=== PATIENT | female | born 1950 | race Caucasian/White ===

== ENCOUNTER 2025-02-05 08:49 | Outpatient (AMB) | payer MEDICARE, SELFPAY ==
--- NOTE | 2025-02-05 08:52 | MHC.OFFVIS ---
Vital Signs 02/05/25 08:57 Height 5 ft 1 in Weight 125 lb BMI 23.6 BP 142/68 H Blood Pressure Location Rt brachial Position Sitting Respiration 16 Pulse 88 Pulse Oximetry (%) 98 Intake Visit Reasons: Dizziness Allergies No Known Allergies Allergy (Verified 02/05/25 08:57) HPI Comments Details: Justine is a 74-year-old female patient with a past medical history of hypertension and hypothyroid who is referred to the clinic for reports of dizziness. According to referral notes from primary care, initially her dizziness was presumed to be related to her amlodipine however after vacationing from the amlodipine she did still have some lightheadedness. She had been referred to vestibular rehab and Neurology though there was mentioned that she never went to Neurology because CT of the head was nonacute. She is no longer feeling ?spinning sensations? but does have lightheadedness which is relatively constant. She does have a family history notable for Parkinson's disease and ?cardiac problems?. Today Justine tells me that in July of 2024 she began having some dizzy spells. They stopped for about 3 months and returned in November. Dizzy spells can occur days in a row and then may occcur once per week or even less. The episodes do no occur more than once per day and her dizziness lasts less than one minute in total. The last time this occurred was 02/02/2025. Between these episodes she feels slightly light headed but this is mild and not impacting her balance. She is not able to determine a trigger for these episodes and can occur sitting or standing or even laying. She has not noticed a correlation with alexander head movements. There are no other symptoms that come along with these episodes. Social: Occupation: Worked as a bankruptcy law specialist for many years Home life:Lives home alone. . Lives close by to 3 children who are involved. Alcohol: No Tobacco: No Substance use: No PD screening: Constipation: No Sense of smell:No loss or change in sense of smell Sleep: Goes to bed at 10am and awakes at 3am with difficulty falling back asleep. No acting out of her dreams. Depression: No Anxiety: No Tremor: No Stiffness:No abnormal stiffness Change in voice: Does note that her voice has been more raspy lately Change in gait:Fracture to her right ankle has contributed to some gait disturbance but other than this no Family history: Mother with history of PD Seizure screening: Last brain imaging:CT brain within the last year at [facility] History of brain infection:No History of significant illness or hospitalization:No History of stroke of brain bleed:No History of pre-term :No History of learning disability:No History of developmental delay:No Family history of seizure:No PFSH Medical History (Updated 02/05/25 @ 09:35 by Shira Cao CNP) Vitamin D deficiency COPD (chronic obstructive pulmonary disease) Hypertension History of lung cancer Surgical History (Updated 02/03/25 @ 08:49 by Jael Abrams CMA) Hx of tonsillectomy History of cholecystectomy History of ankle surgery Family History (Updated 02/03/25 @ 09:01 by Jael Abrams CMA) Mother Parkinson disease Father Cataracts, bilateral Hypotension Review of Systems Const All systems reviewed & are unremarkable except as noted in HPI and below Physical Exam Exam Exam: Negative [place]-Hallpike maneuver Vital Signs: Last Vital Signs Pulse 88 02/05/25 08:57 Resp 16 02/05/25 08:57 BP 142/68 H 02/05/25 08:57 Pulse Ox 98 02/05/25 08:57 BMI result Body Mass Index 23.6 Const General: cooperative, healthy appearing, comfortable and no acute distress Nutritional Appearance: well nourished Orientation/consciousness: patient oriented x3 Limitations: no limitations HEENT Head: Yes normal to inspection and Yes normocephalic Eyes General: appearance normal, both eyes and all related structures Visual Schwartz: normal visual schwartz by confrontation Alignment and Position: alignment normal Periorbital: periorbital findings normal Eyelids: Yes eyelids normal Conjunctivae: conjunctivae normal Sclerae: sclerae normal Neck Neck: Yes normal visual inspection and Yes full ROM General: Yes no CVA tenderness Back/Spine/Pelvis Back: no CVA tenderness Cervical Spine: normal cervical lordosis Thoracic/Lumbar Spine: thoracic and lumbar spine normal to inspection Neuro General: patient oriented x3, tone normal and deep tendon reflexes 2+ bilaterally Cranial nerves: Yes CN's II-XII intact bilaterally and Yes Facial sensation intact/muscles of mastication intact Cognition (Neuro): normal cognition Gait exam (Neuro): Normal gait present Motor exam (neuro): 5/5 motor strength present throughout and no tremor noted Sensory Exam: double simultaneous stimulation for sensation normal Romberg Test: Negative Pupils: Normal pupillary reactivity/response: bilateral Psych Appearance: grossly normal Mental Status: mental status grossly normal Speech and movement: Normal speech and movement present and Clear speech present Affect: normal affect Attitude: cooperative Thought process: Normal thought process present Thought content: Normal thought content present Insight: Good insight present (Psych) Judgement: Good judgement present (Psych) Assessment & Plan Assessment & Plan (1) Dizziness: Code(s): R42 - Dizziness and giddiness Category: Medical Plan: . (2) Vertigo: Code(s): R42 - Dizziness and giddiness Category: Medical Plan: . Sondra Fletcher is a 74-year-old female patient with a past medical history of hypertension and hypothyroid who is referred to the clinic for reports of dizziness/vertigo episodes. These episodes are sporadic lasting only a few seconds at a time. She does have full recovery in between these episodes. Based on history, I have no major concerns for PD or strong indication that seizure is likely. I did however perform a [place]-Hallpike maneuver during our exam today which did not induce her symptoms. I think it is still more than likely to be a benign vertigo though can not completely exclude seizure or vascular etiology. I will send her for a trial of vestibular physical therapy but also order an EEG to rule out potential for seizure activity and an MRA to exclude any vascular abnormalities within the head or neck. -Trial of vestibular PT -EEG -MRA head and neck -Follow-up in 6 weeks or sooner if needed Coding Level of Care Code New Pt Level 4 (02473) Diagnoses Dizziness R42 Vertigo R42
[2025-02-05 08:57] VITALS: BP 142/68; PULSE 88; RESP 16; O2SAT 98; BMI 23.6
--- OUTSIDE RECORDS SUMMARY | 2025-02-05 10:08 | XMS_ITS | Encounter Summary ---
Author Organization [facility] Address [address] [place] [address] Care Team Providers Care Golf Technician Name Role Phone Angelic Julio PA-C Unavailable [phone] Rachel Stringer PA-C Primary Care Provider + Enrique Parsons PA-C Unavailable [phone] Mac Fowler MD Unavailable Encounter Details Date Type Department Care Team Description 09/08/2023 Orders Only Vascular Surgery - [address] [place] [phone] Prachi Rudd MD [address] [place] [phone] PAD (peripheral artery disease) (HCC); Leg pain, bilateral Social History Tobacco Use Types Packs/Day Years Used Date Smoking Tobacco: Former Cigarettes 1 30 0 06/05/1967 - 06/05/2009 Smokeless Tobacco: Never Chew Alcohol Use Standard Drinks/Week Comments Yes 0 (1 standard drink = 0.6 oz pur e alcohol) occasional wine Physical Activity Answer Date Recorded On average, how many days pe r week do you engage in moderate to strenuous exercise (like walking fast, running, jogging, dancing, swimming, biking, or other activities that cause a light or heavy sweat)? 7 days 10/17/2019 On average, how many minutes do you engage in exercise at this level? Not asked Sex Assigned at Date Recorded Not on file Job Start Date Occupation Industry Not on file Not on file Not on file documented as of this encounter Plan of Treatment Not on file documented as of this encounter Procedures Procedure Name Priority Date/Time Associated Diagnosis Comments LOWER EXTREMITY ARTERY STUDY, COMPL WITH ZAINAB Routine 09/07/2023 PAD (peripheral artery disease) ([facility]) Leg pain, bilateral documented in this encounter Results * LOWER EXTREMITY ARTERY STUDY, COMPL WITH ZAINAB (09/07/2023) Prachi Rudd MD VASCULAR ULTRASO UND documented in this encounter Visit Diagnoses Diagnosis PAD (peripheral artery disease) ([facility]) Unspecified disorders of arteries and arterioles Leg pain, bilateral Pain in limb documented in this encounter Care Teams Golf Technician Relationship Specialty Start Date End Date Rachel Stringer PA-C [address] [phone] PCP - General Internal Medicine 04/11/23 Angelic Julio PA-C [address] [phone] Thoracic Surgery 02/28/23 Enrique Parsons PA-C [address] [phone] Specialist Thoracic Surgery 08/30/23 Mac Fowler MD [address] [phone] Lung Cancer Lace Burn Out Tender 03/13/24 documented as of this encounter
--- OUTSIDE RECORDS SUMMARY | 2025-02-05 10:08 | XMS_ITS | Encounter Summary ---
Author Organization [facility] Address [address] [place] [address] Care Team Providers Care Smeller Name Role Phone Bob Ledbetter MD Primary Care Provider [phone] Rachel Stringer-C Primary Care Provider + Bob Ledbetter MD Primary Care Provider [phone] Rachel StringerC Primary Care Provider + Bob Ledbetter MD Primary Care Provider [phone] Angelic Julio PA-C Unavailable [phone] Rachel Stringer-C Primary Care Provider + Enrique Parsons PA-C Unavailable [phone] Mac Fowler MD Unavailable Encounter Details Date Type Department Care Team Description 06/08/2018 Release of Information Medical Records [address] [place] [id number] Abstract, Provider Social History Tobacco Use Types Packs/Day Years Used Date Smoking Tobacco: Former Cigarettes 1 0 06/05/1967 - 06/05/2009 Smokeless Tobacco: Never Alcohol Use Standard Drinks/Week Comments Yes 0 [...] on file documented as of this encounter Visit Diagnoses Not on filedocumented in this encounter Care Teams Smeller Relationship Specialty Start Date End Date Bob Ledbetter MD PCP - General Internal Medicine 04/04/18 09/08/19 Rachel Stringer PA-C [address] [place] [address] PCP - General Internal Medicine 09/09/19 09/28/20 Bob Ledbetter MD PCP - General Internal Medicine 09/29/20 11/26/20 Rachel Stringer PA-C [address] [place] [address] PCP - General Internal Medicine 11/27/20 07/12/22 Bob Ledbetter MD PCP - General Internal Medicine 07/13/22 04/10/23 Rachel Stringer PA-C [address] [place] [address] PCP - General Internal Medicine 04/11/23 Angelic Julio PA-C [address] [phone] Thoracic Surgery 02/28/23 Enrique Parsons PA-C [address] [phone] Specialist Thoracic Surgery 08/30/23 Mac Fowler MD [address] [phone] Lung Cancer Pit Boss 03/13/24 documented as of this encounter
--- OUTSIDE RECORDS SUMMARY | 2025-02-05 10:08 | XMS_ITS | Encounter Summary ---
Author Organization [facility] Address [address] [place] [address] Care Team Providers Care Public Records Officer Name Role Phone Angelic Julio PA-C Unavailable [phone] Rachel Stringer PA-C Primary Care Provider + Enrique Parsons PA-C Unavailable [phone] Mac Fowler MD Unavailable Encounter Details Date Type Department Care Team Description 03/04/2024 Orders Only [facility] Thoracic Surgery [facility] [address] [facility] [address] [place] [phone] Enrique Parsons PA-C 299 [facility] [address] [place] [phone] History of lung cancer Social History Tobacco Use Types Packs/Day Years [...] Procedure Name Priority Date/Time Associated Diagnosis Comments CAT SCAN OF CHEST NO CONTRAST Routine 03/01/2024 History of lung cancer documented in this encounter Results * CAT SCAN OF CHEST NO CONTRAST (03/01/2024) 03/01/2024 Enrique Parsons PA-C CT SCANS [facility] RADIOLOG[facility] documented in this encounter Visit Diagnoses Diagnosis History of lung cancer Personal history of malignant neoplasm of bronchus and lung documented in this encounter Care Teams Public Records Officer Relationship Specialty Start Date End Date Rachel Stringer PA-C [address] [phone] PCP - General Internal Medicine 04/11/23 Angelic Julio PA-C [address] [phone] Thoracic Surgery 02/28/23 Enrique Parsons PA-C [address] [phone] Specialist Thoracic Surgery 08/30/23 Mac Fowler MD [address] [phone] Lung Cancer Fbi Sharpshooter 03/13/24 documented as of this encounter
--- OUTSIDE RECORDS SUMMARY | 2025-02-05 10:08 | XMS_ITS | Encounter Summary ---
Author Organization [facility] Address [address] [place] [address] Care Team Providers Care Television Production Technician Name Role Phone Bob Ledbetter MD Primary Care Provider [phone] Angelic JulioC Unavailable [phone] Rachel Stringer PA-C Primary Care Provider + Enrique Parsons PA-C Unavailable [phone] Mac Rich MD Unavailable Reason for Visit * Reason Onset Date Comments Referral Authorization 12/27/2022 Encounter Details Date Type Department Care Team Description 12/27/2022 Telephone Internal Medicine - [address], [address] [place] [address] Bob Ledbetter MD [address] [place], [place] [id number] Referral Authorization Social History Tobacco Use Types Packs/Day Years [...] file Not on file Not on file COVID-19 Exposure Response Date Recorded In the last 10 days, have yo u been in contact with someone who was confirmed or suspected to have Coronavirus/COVID-19? No / Unsure 12/27/2022 11:09 AM EDT documented as of this encounter Miscellaneous Notes * Telephone Encounter - Anny Chan - 12/27/2022 8:44 AM EDT What insurance does the patient have today? [facility] Effective 02/12/09: BCBS will not retro referral requests over 90 days. If request is for this please instruct patient to call the 800# on their insurance card to appeal. Do not submit a request. Referrals cannot be processed if the insurance is not accurate. If the insurance listed above in red is NO BILLING INFORMATION FOUND FOR THIS ENCOUTNER The patients correct insurance must be obtained and registered in [facility] or their referral can not be processed. Is this a retro request? NO. If yes for what date of service do you need the retro referral? N/A Who is calling to request this referral? na If the caller is not the patient, what is their name? N/A Ask the patient WHO referred them to this specialty: Patient self referred FIRST and LAST NAME of SPECIALIST PATIENT is seeing: dr rich What specialty is this? Thoracic surgeon DIAGNOSIS Patient is being seen for (Not a body part or a procedure): lung nocule Have you seen this SPECIALIST for this PROBLEM/DX before?NO If YES, when:no Have you checked REVIEW or the APPT DESK to see if this referral has already been done or has visits left? NO Is this visit:Initial Visit Address of Specialist:[address] [place] [address] [address] [place], [place] Phone # of Specialist:[phone] Fax #: (if applicable):[phone] Does patient have an appointment scheduled?: YES Date of appointment- (including a retro-request): December 27, 2022 Is this appointment related to: Not MVA, WC or Surgery related documented in this encounter Plan of Treatment Not on file documented as of this encounter Visit Diagnoses Not on filedocumented in this encounter Care Teams Television Production Technician Relationship Specialty Start Date End Date Bob Ledbetter MD PCP - General Internal Medicine 07/13/22 04/10/23 Rachel Stringer PA-C [address] [phone] PCP - General Internal Medicine 04/11/23 Angelic Julio PA-C [address] [phone] Thoracic Surgery 02/28/23 Enrique Parsons PA-C [address] [phone] Specialist Thoracic Surgery 08/30/23 Mac Rich MD [address] [phone] Lung Cancer Forensic Economist 03/13/24 documented as of this encounter
--- OUTSIDE RECORDS SUMMARY | 2025-02-05 10:08 | XMS_ITS | Encounter Summary ---
Author Organization [facility] Address [address] [place] [address] Care Team Providers Care Sales And Marketing Engineer Name Role Phone Rachel Stringer PA-C Primary Care Provider + Bob Ledbetter MD Primary Care Provider [phone] Angelic Julio PA-C Unavailable [phone] Rachel Stringer PA-C Primary Care Provider + Enrique Parsons PA-C Unavailable [phone] Mac Fowler MD Unavailable Encounter Details Date Type Department Care Team Description 11/12/2021 Pt. Non Urgent Medical Question Internal Medicine - [address], [address] [place] [address] Rachel Stringer PA-C [address] [place] [phone] Social History Tobacco Use Types Packs/Day Years [...] on file documented as of this encounter Miscellaneous Notes * Telephone Encounter - Leslie Garcia M.A. - 11/16/2021 10:16 AM EDTFrom: Justine Alvarado To: Tate Stringer Sent: 11/12/2021 12:00 PM EDT Subject: Urine test I'm assuming everything was ok because I haven't heard from anyone. Have a great weekend, Justine documented in this encounter Plan of Treatment Not on file documented as of this encounter Visit Diagnoses Not on filedocumented in this encounter Care Teams Sales And Marketing Engineer Relationship Specialty Start Date End Date Rachel Stringer PA-C PCP - General Internal Medicine 11/27/20 07/12/22 Bob Ledbetter MD PCP - General Internal Medicine 07/13/22 04/10/23 Rachel Stringer PA-C PCP - General Internal Medicine 04/11/23 Angelic Julio PA-C [address] [phone] Thoracic Surgery 02/28/23 Enrique Parsons PA-C [address] [phone] Specialist Thoracic Surgery 08/30/23 Mac Fowler MD [address] [phone] Lung Cancer Barrel Roller 03/13/24 documented as of this encounter
--- OUTSIDE RECORDS SUMMARY | 2025-02-05 10:08 | XMS_ITS | Encounter Summary ---
Author Organization [facility] Address [address] [place] [address] Care Team Providers Care Urban Forester Name Role Phone Angelic Julio PA-C Unavailable [phone] Rachel Stringer PA-C Primary Care Provider + Enrique Parsons PA-C Unavailable [phone] Mac Fowler MD Unavailable Encounter Details Date Type Department Care Team Description 11/29/2023 Orders Only Gastroenterology - [place] [address] [facility] [address] [place] [phone] Justine Watts APRN [address] [facility] [place] [address] Alternating constipation and diarrhea Social History Tobacco Use Types Packs/Day Years [...] Procedure Name Priority Date/Time Associated Diagnosis Comments CHG RADIOLOGIC EXAM ABDOMEN 1 VIEW Routine 11/28/2023 Alternating constipation and diarrhea documented in this encounter Results * RADIOLOGIC EXAM ABDOMEN 1 VIEW (11/28/2023) 11/28/2023 Justine Watts [facility] documented in this encounter Visit Diagnoses Diagnosis Alternating constipation and diarrhea Other symptoms involving digestive system documented in this encounter Care Teams Urban Forester Relationship Specialty Start Date End Date Rachel Stringer PA-C [address] [phone] PCP - General Internal Medicine 04/11/23 Angelic Julio PA-C [address] [phone] Thoracic Surgery 02/28/23 Enrique Parsons PA-C [address] [phone] Specialist Thoracic Surgery 08/30/23 Mac Fowler MD [address] [phone] Lung Cancer Station Chief 03/13/24 documented as of this encounter
--- OUTSIDE RECORDS SUMMARY | 2025-02-05 10:08 | XMS_ITS | Encounter Summary ---
Author Organization [facility] Address [address] [place] [address] Care Team Providers Care Sociocultural Anthropology Professor Name Role Phone Bob Ledbetter MD Primary Care Provider [phone] Rachel Stringer-C Primary Care Provider + Bob Ledbetter MD Primary Care Provider [phone] Rachel StringerC Primary Care Provider + Bob Ledbetter MD Primary Care Provider [phone] Angelic Julio PA-C Unavailable [phone] Rachel Stringer-C Primary Care Provider + Enrique Parsons-C Unavailable [phone] Mac Fowler MD Unavailable Encounter Details Date Type Department Care Team Description 06/11/2018 Orders Only Medical Records [address] [place] [address] Abstract, Provider Social History Tobacco Use Types [...] Procedure Name Priority Date/Time Associated Diagnosis Comments OUTSIDE COLONOSCOPY Routine 03/29/2018 documented in this encounter Results * OUTSIDE COLONOSCOPY (03/29/2018) Provider Abstract RADIOLOGY documented in this encounter Visit Diagnoses Not on filedocumented in this encounter Care Teams Sociocultural Anthropology Professor Relationship Specialty Start Date End Date Bob Ledbetter MD PCP - General Internal Medicine 04/04/18 09/08/19 Rachel Stringer PA-C [address] [place] [phone] PCP - General Internal Medicine 09/09/19 09/28/20 Bob Ledbetter MD PCP - General Internal Medicine 09/29/20 11/26/20 Rachel Stringer PA-C [address] [place] [phone] PCP - General Internal Medicine 11/27/20 07/12/22 Bob Ledbetter MD PCP - General Internal Medicine 07/13/22 04/10/23 Rachel Stringer PA-C [address] [place] [phone] PCP - General Internal Medicine 04/11/23 Angelic Julio PA-C [address] [phone] Thoracic Surgery 02/28/23 Enrique Parsons PA-C [address] [phone] Specialist Thoracic Surgery 08/30/23 Mac Fowler MD [address] [place] [phone] Lung Cancer Wood Carving Lathe Operator 03/13/24 documented as of this encounter
--- OUTSIDE RECORDS SUMMARY | 2025-02-05 10:08 | XMS_ITS | Encounter Summary ---
Author Organization [facility] Address [address] [place] [address] Care Team Providers Care Dial Mounter Name Role Phone Rachel Stringer PA-C Primary Care Provider + Bob Ledbetter MD Primary Care Provider [phone] Angelic Julio PA-C Unavailable [phone] Rachel Stringer PA-C Primary Care Provider + Enrique Parsons PA-C Unavailable [phone] Mac Fowler MD Unavailable Encounter Details Date Type Department Care Team Description 06/02/2022 [facility] Medical Records [address] [place] [address] Social History Tobacco Use Types Packs/Day Years [...] suspected to have Coronavirus/COVID-19? No / Unsure 05/04/2022 9:21 AM EST documented as of this encounter Plan of Treatment Not on file documented as of this encounter Visit Diagnoses Not on filedocumented in this encounter Care Teams Dial Mounter Relationship Specialty Start Date End Date Rachel Stringer PA-C PCP - General Internal Medicine 11/27/20 07/12/22 Bob Ledbetter MD PCP - General Internal Medicine 07/13/22 04/10/23 Rachel Stringer PA-C PCP - General Internal Medicine 04/11/23 Angelic Julio PA-C [address] [phone] Thoracic Surgery 02/28/23 Enrique Parsons PA-C [address] [phone] Specialist Thoracic Surgery 08/30/23 Mac Fowler MD [address] [phone] Lung Cancer Counterintelligence Analyst 03/13/24 documented as of this encounter
--- OUTSIDE RECORDS SUMMARY | 2025-02-05 10:08 | XMS_ITS | Clinical Summary ---
Author Organization [facility] Address [address] [place] [address] Care Team Providers Care Chain Offbearer Name Role Phone Angelic Julio PA-C Unavailable [phone] Rachel Stringer PA-C Primary Care Provider + Enrique Parsons PA-C Unavailable [phone] Mac Fowler MD Unavailable Allergies Active Allergy Reactions Severity Noted Date Comments No Known Drug Allergies 2009 Medications Medication Sig Dispensed Refills Start Date End Date Status levothyroxine (SYNTHROID, LEVOTHROID) 75 MCG tablet Take 1 Tab by mouth daily. 0 01/04/2017 Active Cholecalciferol (VITAMIN D3) 2000 UNITS CapIndications:Vitamin D deficiency Take 1 Cap by mouth daily. 90 Cap 3 06/18/2018 Active fluticasone (FLONASE) 50 MCG/ACT nasal spray 2 Sprays by Nasal route daily. 3 Bottle 1 08/20/2020 Active Magnesium 250 MG TabIndications:Constip ation, unspecified constipation type,Insomnia, unspecified type Take 1 Tablet by mouth at bedtime. 90 Tablet 1 09/25/2023 Active cetirizine (ZYRTEC) 10 MG tabletIndications:Iban rgic rhinitis, unspecified seasonality, unspecified trigger TAKE 1 TABLET BY MOUTH EVERY DAY 90 Tablet 3 12/07/2023 Active amlodipine (NORVASC) 5 MG tablet Take 1 Tablet by mouth daily. 90 Tablet 2 03/14/2024 Active Active Problems Problem Noted Date Vitamin B12 deficiency 03/14/2024 History of lung cancer 02/24/2023 Last Assessment & Plan: Ms. Morgan is a 73-year-old female, former smoker on February 14, 2023 had a da Jerry right middle lobectomy and pleural biopsy for stage Ia adenocarcinoma. Her most recent chest CT surveillance scan was performed on 03/01/2024 which according to radiologist read shows a 3 mm left lower lobe pulmonary nodule. Per NCCN guidelines we will continue with 6-month chest CT surveillance for the first 2 years following her surgical date and then increased to 12-month intervals thereafter for total surveillance of 5 years. Her next chest CT scan will be due in August 2024 and have a visit at the thoracic surgery department thereafter to discuss results. History of COVID-19 04/11/2020 Overview: had 03/2020 and 04/2021 Osteopenia 12/31/2019 Overview: femoral neck and hip per BMD History of smoking 30 or more pack years 01/11/2019 Allergic rhinitis 06/05/2018 Hypothyroidism 01/08/2018 Overview: Comments: Endo Dr. Meadows Vitamin D deficiency COPD (chronic obstructive pulmonary dise ase) Pulmonary nodule 1 cm or greater in diam eter Overview: CT chest 03/08/19, 10/19/19- stable repeat 1 year - Dr. Fowler Last Assessment & Plan: 72-year-old woman former smoker who smoked a pack a day starting at age 16 up until 2009 with an enlarging solid component of a mixed nodule in the right middle lobe which is a clinical stage I lung cancer until proven otherwise. I had a discussion with her about the findings on her serial CAT scans and her PET scan including how PET scans work and how to use them. We also discussed pulmonary nodules in general and how their size, shape, and policy change clerks supervisor time affect are level of suspicion for malignancy. This is a highly suspicious nodule for probably a lipidic type lung cancer which I explained to her. Finally, we discussed the diagnosis, staging, and treatment of lung cancer which she seemed understand. Options discussed with her were continued observation versus needle biopsy versus surgical resection which would take a lobectomy. After our discussion she decided on a lobectomy. She has pulmonary function test coming up this week and I will have her see her primary care with the plan for a da Jerry right middle lobectomy in early February when she comes back from [place]. She is going to [place] from January 29 until February 12. Prior to that we will get any testing we need to get done and have her see her primary care for a preoperative risk assessment. All questions were answered. Immunizations Name Administration Dates Next Due COVID-19 (Pfizer) Pt Reported 06/04/2021, 021,07/26/2020 Influenza vaccine high dose age 65 and over 02/13/2024,02/03/2022,02/12/2021,05/15 Pneumoccoccal(Adult) Polysac charide PPSV23 08/07/2018 Pneumococcal Conjugate PCV-13 06/05/2018 RSV 08/15/2023 Family History Medical History Relation Name Comments Cataract Father Hypertension Father Parkinson's Disease Mother Relation Name Status Comments Father (Age 93) covid Mother (Age 78) Social History Tobacco Use Types Packs/Day Years Used Date Smoking Tobacco: Former Cigarettes 1 30 0 06/05/1967 - 06/05/2009 Smokeless Tobacco: Never Chew Tobacco Cessation:Counseling Given: Not Answered Alcohol Use Standard Drinks/Week Comments Yes 0 [...] file Not on file Not on file Last Filed Vital Signs Vital Sign Reading Time Taken Comments Blood Pressure 139/60 03/14/2024 9:49 AM EDT Pulse 87 03/14/2024 9:49 AM EDT Temperature 36.3 C (97.3 F) 03/14/2024 9:49 AM EDT Respiratory Rate 14 03/13/2024 10:13 AM EDT Oxygen Saturation 96% 03/14/2024 9:49 AM EDT Inhaled Oxygen Concentration - - Weight 56.9 kg (125 lb 6.4 oz) 03/14/2024 9:49 A M EDT Height 154.9 cm (5' 1 ) 03/14/2024 9:49 AM EDT Body Mass Index 23.69 03/14/2024 9:49 AM EDT Plan of Treatment Health Maintenance Due Date Last Done Comments HEPATITIS C SCREENING 1966 DTAP/TDAP/TD (1 - Tdap) 1967 SHINGLES VACCINE (1 of 2) 1998 MAMMOGRAM 01/14/2024 01/13/2023, 12/14, 07/30/2020 BONE DENSITY SCREENING 11/30/2024 , 12/31/2019, 12/31/2019 (External Completion) Covid-19 Vaccine (2022-2 4 season) 2025 06/04/2021, 08/16/2020, 07/26/2020 INFLUENZA (#1) 2025 02/13/2024, 01/14, 02/12/2021, Additional history exists Lung Cancer Screening (Low D ose CT) 03/01/2025 03/01/2024, 08/22/2023, 08/31/2022, Additional history exists CHOLESTEROL SCREENING 07/18/2028 07/19/2023 , 08/04/2022, 05/25/2020, Additional history exists PNEUMOCOCCAL VACCINE Completed 08/07/2018, 06/05/19 19 Care Teams Chain Offbearer Relationship Specialty Start Date End Date Rachel Stringer PA-C [address] [place] [phone] PCP - General Internal Medicine 04/11/23 Angelic Julio PA-C [address] [place] [phone] Thoracic Surgery 02/28/23 Enrique Parsons PA-C [address] [place] [phone] Specialist Thoracic Surgery 08/30/23 Mac Fowler MD [address] [phone] Lung Cancer Pattern Hand 03/13/24
--- OUTSIDE RECORDS SUMMARY | 2025-02-05 10:08 | XMS_ITS | Encounter Summary ---
Author Organization [facility] Address [address] [place] [address] Care Team Providers Care Preschool Assistant Teacher Name Role Phone Bob Ledbetter MD Primary Care Provider [phone] Angelic Julio PA-C Unavailable [phone] Rachel Stringer PA-C Primary Care Provider + Enrique Parsons PA-C Unavailable [phone] Mac Fowler MD Unavailable Encounter Details Date Type Department Care Team Description 08/03/2022 Telephone [facility] Lung Screening Program [place] [address] [facility] [address] [place] [phone] Mac Fowler MD 299 [facility] [address] [place] [id number] Social History Tobacco Use Types Packs/Day Years [...] Recorded In the last 10 days, have simone u been in contact with someone who was confirmed or suspected to have Coronavirus/COVID-19? No / Unsure 08/04/2022 11:08 AM EDT documented as of this encounter Miscellaneous Notes * Telephone Encounter - Nelida Spear - 08/03/2022 3:22 PM EDT I called patient to confirm her annual Chest CT Scan from the Lung Cancer Program that was schedulefor Monday at 10:30 at [facility]. Patient unable to keep her appointment due to having broken her ankle and needed to reschedule. I Called central Booking and scheduled patient with alfredo New date Wednesday August 31, 2022 st 11:30. New letter will be mail out. documented in this encounter Plan of Treatment Not on file documented as of this encounter Visit Diagnoses Not on filedocumented in this encounter Care Teams Preschool Assistant Teacher Relationship Specialty Start Date End Date Bob Ledbetter MD PCP - General Internal Medicine 07/13/22 04/10/23 Rachel Stringer PA-C [address] [phone] PCP - General Internal Medicine 04/11/23 Angelic Julio PA-C [address] [phone] Thoracic Surgery 02/28/23 Enrique Parsons PA-C [address] [phone] Specialist Thoracic Surgery 08/30/23 Mac Fowler MD [address] [phone] Lung Cancer Cupola Repairer 03/13/24 documented as of this encounter
--- OUTSIDE RECORDS SUMMARY | 2025-02-05 10:08 | XMS_ITS | Encounter Summary ---
Author Organization [facility] Address [address] [place] [address] Care Team Providers Care Pin Sorter And Bagger Name Role Phone Rachel Stringer PA-C Primary Care Provider + Bob Ledbetter MD Primary Care Provider [phone] Angelic Julio PA-C Unavailable [phone] Rachel Stringer PA-C Primary Care Provider + Enrique Parsons PA-C Unavailable [phone] Mac Fowler MD Unavailable Encounter Details Date Type Department Care Team Description 03/30/2022 Pt. Non Urgent Medical Question Internal Medicine - [address], [address] [place] [address] Rachel Stringer PA-C [address] [place] [phone] Social History Tobacco Use Types Packs/Day [...] suspected to have Coronavirus/COVID-19? No / Unsure 03/29/2022 1:13 PM EST documented as of this encounter Plan of Treatment Not on file documented as of this encounter Visit Diagnoses Not on filedocumented in this encounter Care Teams Pin Sorter And Bagger Relationship Specialty Start Date End Date Rachel Stringer PA-C PCP - General Internal Medicine 11/27/20 07/12/22 Bob Ledbetter MD PCP - General Internal Medicine 07/13/22 04/10/23 Rachel Stringer PA-C PCP - General Internal Medicine 04/11/23 Angelic Julio PA-C [address] [phone] Thoracic Surgery 02/28/23 Enrique Parsons PA-C [address] [phone] Specialist Thoracic Surgery 08/30/23 Mac Fowler MD [address] [phone] Lung Cancer Stabilizer Operator 03/13/24 documented as of this encounter
--- OUTSIDE RECORDS SUMMARY | 2025-02-05 10:08 | XMS_ITS | Encounter Summary ---
Author Organization [facility] Address [address] [place] [address] Care Team Providers Care District Attorney Name Role Phone Rachel Stringer PA-C Primary Care Provider + Bob Ledbetter MD Primary Care Provider [phone] Angelic Julio PA-C Unavailable [phone] Rachel Stringer PA-C Primary Care Provider + Enrique Parsons PA-C Unavailable [phone] Mac Fowler MD Unavailable Encounter Details Date Type Department Care Team Description 02/04/2022 Pt. Non Urgent Medical Question Internal Medicine - [address], [address] [place] [address] Rachel Stringer PA-C [address] [place] [phone] Allergic rhinitis, unspecified seasonality, unspecified trigger Social History Tobacco Use Types Packs/Day Years [...] suspected to have Coronavirus/COVID-19? No / Unsure 02/03/2022 2:42 PM EDT documented as of this encounter Plan of Treatment Not on file documented as of this encounter Visit Diagnoses Diagnosis Allergic rhinitis, unspecified seasonality, unspecified trigger documented in this encounter Care Teams District Attorney Relationship Specialty Start Date End Date Rachel Stringer PA-C PCP - General Internal Medicine 11/27/20 07/12/22 Bob Ledbetter MD PCP - General Internal Medicine 07/13/22 04/10/23 Rachel Stringer PA-C PCP - General Internal Medicine 04/11/23 Angelic Julio PA-C [address] [phone] Thoracic Surgery 02/28/23 Enrique Parsons PA-C [address] [phone] Specialist Thoracic Surgery 08/30/23 Mac Fowler MD [address] [phone] Lung Cancer Credit Rating Inspector 03/13/24 documented as of this encounter
--- OUTSIDE RECORDS SUMMARY | 2025-02-05 10:08 | XMS_ITS | Encounter Summary ---
Author Organization [facility] Address [address] [place] [address] Care Team Providers Care Food And Nutrition Teacher Name Role Phone Bob Ledbetter MD Primary Care Provider [phone] Angelic Julio PA-C Unavailable [phone] Rachel StringerC Primary Care Provider + Enrique Parsons-C Unavailable [phone] Mac Fowler MD Unavailable Reason for Visit * Reason Onset Date Comments Call From Insurance Co 10/17/2022 Encounter Details Date Type Department Care Team Description 10/17/2022 Telephone Internal Medicine - [address], [address] [place] [address] Bob Ledbetter MD [address] [place], [place] [phone] Call From Insurance Co Social History Tobacco Use Types Packs/Day Years [...] suspected to have Coronavirus/COVID-19? No / Unsure 10/06/2022 10:12 AM EDT documented as of this encounter Miscellaneous Notes * Telephone Encounter - Tutu Carson - 10/18/2022 12:52 PM EDT Bone dexa order has been refaxed. * Telephone Encounter - Rachel Stringer PA-C - 10/18/2022 11:55 AM EDT There is already an order in her chart from 08/04/2022 under imaging * Telephone Encounter - Kristie Sheppard M.A. - 10/17/2022 11:49 AM EDT Kalyn from [facility] insurance requesting a Bony Density test for patient 11/29/22 * Telephone Encounter - Mattie Carbajal - 10/17/2022 11:43 AM EDT Kalyn from [facility] insurance requesting a Bony Density test for patient 11/29/22 documented in this encounter Plan of Treatment Not on file documented as of this encounter Visit Diagnoses Not on filedocumented in this encounter Care Teams Food And Nutrition Teacher Relationship Specialty Start Date End Date Bob Ledbetter MD PCP - General Internal Medicine 07/13/22 04/10/23 Rachel Stringer PA-C [address] [place] [phone] PCP - General Internal Medicine 04/11/23 Angelic Julio PA-C [address] [phone] Thoracic Surgery 02/28/23 Enrique Parsons PA-C [address] [phone] Specialist Thoracic Surgery 08/30/23 Mac Fowler MD [address] [phone] Lung Cancer Cooling Machine Operator 03/13/24 documented as of this encounter
--- OUTSIDE RECORDS SUMMARY | 2025-02-05 10:08 | XMS_ITS | Clinical Summary ---
Author Organization [facility] Address [address] [place] [address] Care Team Providers Care Mixer Machine Feeder Name Role Phone Jojo August Primary Care Provider Allergies No known active allergies Medications Medication Sig Dispensed Refills Start Date End Date Status levothyroxine (SYNTHROID, LEVOXYL) tablet 75 mcg Take 75 mcg by mouth every morning on an empty stomach. 0 Active ondansetron (ZOFRAN-ODT) 4 MG disintegrating tablet Take 1 tablet (4 mg total) by mouth every 8 (eight) hours as needed for nausea. 10 tablet 0 05/07/2018 Active Social History Tobacco Use Types Packs/Day Years Used Date Smoking Tobacco: Former Cigarettes Q uit: 03/07/2013 Smokeless Tobacco: Never Alcohol Use Standard Drinks/Week Comments No 0 (1 standard drink = 0.6 oz pur e alcohol) Sex and Gender Information Value Date Recorded Sex Assigned at Female 05/07/2018 9:52 AM EST Gender Identity Not on file Sexual Orientation Not on file Job Start Date Occupation Industry Not on file Not on file Not on file Last Filed Vital Signs Vital Sign Reading Time Taken Comments Blood Pressure 143/78 05/07/2018 9:40 AM EST Pulse 93 05/07/2018 9:40 AM EST Temperature 36.7 C (98 F) 05/07/2018 9:40 AM EST Respiratory Rate 18 05/07/2018 9:40 AM EST Oxygen Saturation 97% 05/07/2018 9:40 AM EST Inhaled Oxygen Concentration - - Weight 56.7 kg (125 lb) 05/07/2018 9:40 AM EST Height 154.9 cm (5' 1 ) 05/07/2018 9:40 AM EST Body Mass Index 23.62 05/07/2018 9:40 AM EST Plan of Treatment Health Maintenance Due Date Last Done Comments Hepatitis C Screening 1950 Depression Screening 1960 Preventative Health Evaluation 1966 DTap / Tdap / Td (1 - Tdap) 1967 Shingrix-Zoster Vaccine (1 o f 2) 1998 Fall Risk Assessment 2013 Osteoporosis Screening (DEXA Scan) 2013 RSV Adult > 60+ Yrs or (1 - 1-dose 75+ series) 2023 COVID-19 Vaccine (4 - 2024-2 6 season) 2025 06/04/2021, 08/16/2020, 07/26/2020 Influenza Vaccine (#1) 2025 2, 02/12/2021, 05/15/2018 Pneumococcal Vaccine Completed 08/07/2018, 06/05/2018 Hepatitis B Vaccines Aged Out No long er eligible based on patient's age to complete this topic RSV Ped < 20 months Aged Out No longe r eligible based on patient's age to complete this topic Care Teams Mixer Machine Feeder Relationship Specialty Start Date End Date Jojo August PA PCP - General Physician Sales Executive Insurance 05/07/18
--- OUTSIDE RECORDS SUMMARY | 2025-02-05 10:08 | XMS_ITS | Encounter Summary ---
Author Organization [facility] Address [address] [place] [address] Care Team Providers Care Women'S Swim Coach Name Role Phone Angelic Julio PA-C Unavailable [phone] Rachel Stringer PA-C Primary Care Provider + Enrique Parsons PA-C Unavailable [phone] Mac Fowler MD Unavailable Reason for Visit * Reason Onset Date Comments Provider Call Back 04/11/2023 Encounter Details Date Type Department Care Team Description 04/11/2023 Telephone Internal Medicine - [address], [address] [place] [address] Bob Ledbetter MD [address] [place], [place] [phone] Provider Call Back Social History Tobacco Use Types Packs/Day Years [...] suspected to have Coronavirus/COVID-19? No / Unsure 03/22/2023 9:16 AM EST documented as of this encounter Miscellaneous Notes * Telephone Encounter - Tutu Carson - 04/12/2023 9:51 AM EST Lvm for pt to contact our office regarding message below. * Telephone Encounter - Indira Solano - 04/11/2023 3:05 PM EST Patient needs a call back because she was send to [facility] for her ear flush on both earsbut she have to wait 6 months for an appt and both ears needs to be flush Please advice [phone] documented in this encounter Plan of Treatment Not on file documented as of this encounter Visit Diagnoses Not on filedocumented in this encounter Care Teams Women'S Swim Coach Relationship Specialty Start Date End Date Rachel Stringer PA-C [address] [phone] PCP - General Internal Medicine 04/11/23 Angelic Julio PA-C [address] [phone] Thoracic Surgery 02/28/23 Enrique Parsons PA-C [address] [phone] Specialist Thoracic Surgery 08/30/23 Mac Fowler MD [address] [phone] Lung Cancer Dust Puller 03/13/24 documented as of this encounter
--- OUTSIDE RECORDS SUMMARY | 2025-02-05 10:08 | XMS_ITS | Encounter Summary ---
Author Organization [facility] Address [address] [place] [address] Care Team Providers Care Absorption And Adsorption Engineer Name Role Phone Bob Ledbetter MD Primary Care Provider [phone] Angelic Julio PA-C Unavailable [phone] Rachel Stringer PA-C Primary Care Provider + Enrique Parsons PA-C Unavailable [phone] Mac Fowler MD Unavailable Encounter Details Date Type Department Care Team Description 01/06/2023 Orders Only [facility] Lung Screening Program [place] 299 [facility] [address] [place] [phone] Angelic Julio PA-C [address] [facility] [address] [place] [phone] Pulmonary nodules Social History Tobacco Use Types Packs/Day Years [...] suspected to have Coronavirus/COVID-19? No / Unsure 01/09/2023 3:17 PM EDT documented as of this encounter Plan of Treatment Not on file documented as of this encounter Procedures Procedure Name Priority Date/Time Associated Diagnosis Comments TUMOR IMAGING, (PET) W/ATTEN UATION CORREXN/ANATOMIC LOC CT; SKULL BASE TO MID-THIGH Routine 01/06/2023 Pulmonary nodules documented in this encounter Results * TUMOR IMAGING, (PET) W/ATTENUATION CORREXN/ANATOMIC LOC CT; SKULL BASE TO MID- THIGH (01/06/2023) 01/06/2023 Angelic Julio PA-C RADIOLOGY documented in this encounter Visit Diagnoses Diagnosis Pulmonary nodules Other nonspecific abnormal finding of lung field documented in this encounter Care Teams Absorption And Adsorption Engineer Relationship Specialty Start Date End Date Bob Ledbetter MD PCP - General Internal Medicine 07/13/22 04/10/23 aRchel Stringer PA-C [address] [phone] PCP - General Internal Medicine 04/11/23 Angelic Julio PA-C [address] [phone] Thoracic Surgery 02/28/23 Enrique Parsons PA-C [address] [phone] Specialist Thoracic Surgery 08/30/23 Mac Fowler MD [address] [phone] Lung Cancer Senior Staff Psychologist 03/13/24 documented as of this encounter
--- OUTSIDE RECORDS SUMMARY | 2025-02-05 10:08 | XMS_ITS | Encounter Summary ---
Author Organization [facility] Address [address] [place] [address] Care Team Providers Care Lapel Padder Blindstitch Name Role Phone oBb Ledbetter MD Primary Care Provider [phone] Angelic Julio PA-C Unavailable [phone] Rachel Stringer PA-C Primary Care Provider + Enrique Parsons PA-C Unavailable [phone] Mac Fowler MD Unavailable Encounter Details Date Type Department Care Team Description 11/12/2022 Orders Only Internal Medicine - [address], [address] [place] [address] Bob Ledbetter MD [address] [place], [place] [phone] Social History Tobacco Use Types Packs/Day Years [...] on filedocumented in this encounter Care Teams Lapel Padder Blindstitch Relationship Specialty Start Date End Date Bob Ledbetter MD PCP - General Internal Medicine 07/13/22 04/10/23 Rachel Stringer PA-C [address] [phone] PCP - General Internal Medicine 04/11/23 Angelic Julio PA-C [address] [phone] Thoracic Surgery 02/28/23 Enrique Parsons PA-C [address] [phone] Specialist Thoracic Surgery 08/30/23 Mac Fowler MD [address] [phone] Lung Cancer Director Content Marketing 03/13/24 documented as of this encounter
--- OUTSIDE RECORDS SUMMARY | 2025-02-05 10:08 | XMS_ITS | Encounter Summary ---
Author Organization [facility] Address [address] [place] [address] Care Team Providers Care Grounds Caretaker Name Role Phone Bob Ledbetter MD Primary Care Provider [phone] Angelic Julio PA-C Unavailable [phone] Rachel Stringer PA-C Primary Care Provider + Enrique Parsons PA-C Unavailable [phone] Mac Fowler MD Unavailable Reason for Visit * Reason Onset Date Comments refill request 09/16/2022 Encounter Details Date Type Department Care Team Description 09/16/2022 Refill Internal Medicine - [address], [address] [place] [address] Bob Ledbetter MD [address] [place], [place] [phone] refill request Social History Tobacco Use Types Packs/Day Years [...] encounter Miscellaneous Notes * Telephone Encounter - Nick Grimes - 09/16/2022 9:34 AM EDT [place] 08/04/2022 Nov 02/06/2023 documented in this encounter Plan of Treatment Not on file documented as of this encounter Visit Diagnoses Diagnosis Allergic rhinitis, unspecified seasonality, unspecified trigger documented in this encounter Care Teams Grounds Caretaker Relationship Specialty Start Date End Date Bob Ledbetter MD PCP - General Internal Medicine 07/13/22 04/10/23 Rachel Stringer PA-C [address] [phone] PCP - General Internal Medicine 04/11/23 Angelic Julio PA-C [address] [phone] Thoracic Surgery 02/28/23 Enrique Parsons PA-C [address] [phone] Specialist Thoracic Surgery 08/30/23 Mac Fowler MD [address] [phone] Lung Cancer Senior Environmental Consultant 03/13/24 documented as of this encounter
--- OUTSIDE RECORDS SUMMARY | 2025-02-05 10:09 | XMS_ITS | Encounter Summary ---
Author Organization [facility] Address [address] [place] [address] Care Team Providers Care Hand Trimmer Name Role Phone Bob Ledbetter MD Primary Care Provider Angelic Julio PA-C Unavailable [phone] Rachel Stringer PA-C Primary Care Provider + Enrique Parsons PA-C Unavailable [phone] Mac Fowler MD Unavailable Encounter Details Date Type Department Care Team Description 02/07/2023 Orders Only Internal Medicine - [address], [address] [place] [address] Bob Ledbetter MD [address] [place], [place] [id number] Social History Tobacco Use Types Packs/Day Years [...] suspected to have Coronavirus/COVID-19? No / Unsure 01/17/2023 1:04 PM EDT documented as of this encounter Plan of Treatment Not on file documented as of this encounter Visit Diagnoses Not on filedocumented in this encounter Care Teams Hand Trimmer Relationship Specialty Start Date End Date Bob Ledbetter MD PCP - General Internal Medicine 07/13/22 04/10/23 Rachel Stringer PA-C [address] [phone] PCP - General Internal Medicine 04/11/23 Angelic Julio PA-C [address] [phone] Thoracic Surgery 02/28/23 Enrique Parsons PA-C [address] [phone] Specialist Thoracic Surgery 08/30/23 Mac Fowler MD [address] [phone] Lung Cancer Blasting Contract Man 03/13/24 documented as of this encounter
--- OUTSIDE RECORDS SUMMARY | 2025-02-05 10:09 | XMS_ITS | Encounter Summary ---
Author Organization [facility] Address [address] [place] [address] Care Team Providers Care Pier Hand Name Role Phone Bob Ledbetter MD Primary Care Provider [phone] Angelic Julio PA-C Unavailable [phone] Rachel Stringer PA-C Primary Care Provider + Enrique Parsons PA-C Unavailable [phone] Mac Fowler MD Unavailable Encounter Details Date Type Department Care Team Description 02/16/2023 Orders Only Medical Records [address] [place] [address] Abstract, Provider Social History Tobacco Use Types [...] was confirmed or suspected to have Coronavirus/COVID-19? Unable to assess 02/14/2023 7:55 AM EDT documented as of this encounter Plan of Treatment Not on file documented as of this encounter Procedures Procedure Name Priority Date/Time Associated Diagnosis Comments OUTSIDE PLAIN FILM Routine 02/14/2023 documented in this encounter Results * OUTSIDE PLAIN FILM (02/14/2023) Provider Abstract RADIOLOGY documented in this encounter Visit Diagnoses Not on filedocumented in this encounter Care Teams Pier Hand Relationship Specialty Start Date End Date Bob Ledbetter MD PCP - General Internal Medicine 07/13/22 04/10/23 Rachel Stringer PA-C [address] [phone] PCP - General Internal Medicine 04/11/23 Angelic Julio PA-C [address] [phone] Thoracic Surgery 02/28/23 Enrique Parsons PA-C [address] [phone] Specialist Thoracic Surgery 08/30/23 Mac Fowler MD [address] [phone] Lung Cancer Chief Petroleum Engineer 03/13/24 documented as of this encounter
--- OUTSIDE RECORDS SUMMARY | 2025-02-05 10:09 | XMS_ITS | Clinical Summary ---
Author Organization [facility] Address [address] [place] [address] Phone Care Team Providers Care [employer] Name Role Phone Constanza Stringer Primary Care Provider + Allergies No known active allergies Medications magnesium 250 mg tablet Take 1 Tablet by mouth at bedtime. 4 Active cholecalciferol (VITAMIN D-3) 50 mcg (2,000 unit) capsule Take 1 Cap by mouth daily. 9 Active cyanocobalamin 2,000 mcg tablet Take 1 tablet (2,000 mcg total) by mouth 1 (one) time per week. 4 Active fluticasone propionate (FLONASE) 50 mcg/actuation nasal sprayIndications :Allergic rhinitis, unspecified seasonality, unspecified trigger Administer 2 sprays into each nostril 1 (one) time each day. Shake gently. Before first use, prime pump. After use, clean tip and replace cap. 16 g 1 4 Active aspirin 81 mg EC tablet Take 1 tablet (81 mg total) by mouth 1 (one) time each day. Active levothyroxine (SYNTHROID, LEVOTHROID) 75 mcg tabletIndication s:Hypothyroidism , unspecified type Take 1 tablet (75 mcg total) by mouth 1 (one) time each day before breakfast. 6 days/week, skip day. 5 Active cetirizine (ZyrTEC) 10 mg tablet TAKE 1 TABLET BY MOUTH EVERY DAY 90 tablet 1 5 Active Active Problems Problem Noted Date Diagnosed Date History of lung cancer 08/26/2024 Assessment & Plan (08/26/2024 2:12 PM EDT): Ms. Macedo is a 74 y.o. female, former smoker on February 14, 2023 had a da Jerry right middle lobectomy and pleural biopsy for stage Ia adenocarcinoma. Her most recent chest CT surveillance scan was performed on 08/13/24 which showed stable appearance of scattered pulmonary nodules with no evidence of pleural effusion or pneumothorax. Per NCCN guidelines we will continue with 6-month chest CT surveillance screenings for the first 2 years following her surgical date and then to 1 year intervals thereafter for a total surveillance screenings of [address] scan will be due in February 2025 and she will have a visit with the thoracic surgery department following the scan to discuss the results. Patient told to call the office should she have any questions or concerns prior to their next appointment. COPD (chronic obstructive pu lmonary disease) (CMS/HCC V24, CMS/HCC V28) 02/21/2024 Pulmonary nodule 1 cm or greater in diameter 01/2024 Overview (02/21/2024): CT chest 03/08/19, 10/19/19- stable repeat 1 year - Dr. Handy Last Assessment & Plan: 72-year-old woman former [...] general and how their size, shape, and post exchange manager time affect are level of suspicion for [...] early February when she comes back from [place]. She is going to [place] from January 29 until February 12. Prior to that we will get any testing we need to get done and have her see her primary care for a preoperative risk assessment. All questions were answered. Vitamin D deficiency 02/21/2024 Osteopenia 12/31/2019 Overview (02/21/2024): femoral neck and hip per BMD Allergic rhinitis 06/05/2018 Hypothyroidism 01/08/2018 Overview (02/21/2024): Comments: Jaziel Meadows HTN (hypertension) Encounters Date Type Department Care Team Description 01/22/2025 8:14 AM EDT - 01/22/2025 11:59 PM EDT Hospital Encounter [facility] Ultrasound [address] [place] [phone] Bilateral lower extremity pain; Other specified symptoms and signs involving the circulatory and respiratory systems Discharge Disposition: Home or Self Care 11/26/2024 9:45 AM EDT Office Visit Internal Medicine [facility] [address] [phone] Constanza Stringer PA Lightheadedness (Primary Dx); Primary hypertension; Hypothyroidism, unspecified type 11/11/2024 9:30 AM EDT Office Visit Internal Medicine [address] [phone] Constanza Stringer PA Dizziness (Primary Dx); Primary hypertension 11/07/2024 Telephone Internal Medicine [facility] [address] [phone] Constanza Stringer PA from Last 3 Months Immunizations Name Administration Dates Next Due Influenza trivalent, 0.5mL ( Fluzone High-dose) 65yo and older 02/03/2022,02/12/2021,05/15/2018 OANDA SARS-CoV-2 COVID-19, mRNA, LNP-S, preservative free 06/04/2021 Pneumococcal conjugate 13 va lent (Prevnar 13, PCV13) 2mo and older 06/05/2018 Pneumococcal polysaccharide 23 valent (Pneumovax 23) 2yo and older 08/07/2018 Respiratory syncytial virus (RSV), unspecified 08/15/2023 Surgical History Surgery Date Site/Laterality Comments CHOLECYSTECTOMY PROCEDURE: HISTORICAL CHOLECYSTECTOMY TONSILLECTOMY PROCEDURE: HISTORICAL TONSILLECTOMY ANKLE SURGERY PROCEDURE: HISTORICAL ANKLE SURGERY OTHER SURGICAL HISTORY 02/14/2023 Right PROCEDURE: [place] THORACOSCOPY W/LOBECTOMY SINGLE LOBE; COMMENT: RML Lobectomy Medical History Medical History Date Comments Hypothyroidism 01/08/2018 DX:Hypothyroidis m; COMMENT: Comments: Endo Dr. Meadows Vitamin D deficiency DX:Vitamin D deficiency COPD (chronic obstructive pu lmonary disease) ([facility]/HCC V24, CMS/HCC V28) DX:COPD (chronic o bstructive pulmonary disease) ([facility]) Pulmonary nodules DX:Pulmonary n odules; COMMENT: CT chest 03/08/19, 10/19/19- stable repeat 1 year - Dr. Handy History of COVID-19 04/11/2020 DX:History o f COVID-19; COMMENT: had 03/2020 and 04/2021 Osteopenia 12/31/2019 DX:Osteopenia; C OMMENT: femoral neck and hip per BMD HTN (hypertension) Family History Medical History Relation Name Comments Cataracts Father Hypertension Father Parkinson's Disease Mother Relation Name Status Comments Father (Age 93) covid Mother (Age 78) Social History Tobacco Use Types Packs/Day Years Used Date Smoking Tobacco: Former Cigarettes 1 42 0 06/05/1967 - 06/05/2009 Smokeless Tobacco: Never Tobacco Cessation:Counseling Given: Not Answered Alcohol Use Standard Drinks/Week Comments Yes 0 (1 standard drink = 0.6 oz pur e alcohol) Housing Instability Answer Date Recorde d Are you worried that in the next 2 months you may not have stable housing? No 03/27/2024 Food Access & Nutrition Answer Date Rec orded Do you have access to a vari ety of food including fruits and vegetables? Yes 03/27/2024 Access to Healthcare Answer Date Record ed Within the last 3 months, ho w many times did you visit the emergency department for your medical care? 0 03/27/2024 Health Literacy Answer Date Recorded How often do you need to hav e someone help you when you read instructions, pamphlets, or other written material from your doctor or pharmacy? Never 03/27/2024 Caregiver: How often do you need to have someone help you when you read instructions, pamphlets, or other written material from your doctor or pharmacy? Not on file 03/27/2024 Financial Risk Answer Date Recorded How hard is it for you to pa y for the very basics like food, housing, medical care, and air conditioning / heating? Not very hard 03/27/2024 Transportation Answer Date Recorded Has the lack of transportati on kept you from meetings, work, or from getting things needed for daily living? No Has the lack of transportati on kept you from medical appointments or from getting medications? No 03/27/2024 Food Risk Answer Date Recorded Within the past 12 months we worried whether our food would run out before we got money to buy more. Never true 03/27/2024 Within the past 12 months th e food we bought just didn't last and we didn't have money to get more. Never true 03/27/2024 Dependent Care Answer Date Recorded Do you need help finding or paying for care for your loved ones. For example, child support officer or elderly care for an older adult? No 03/27/2024 Education Answer Date Recorded Do you think completing more education or training, like finishing a GED, going to college, or learning a trade, would be helpful for you? N/A 03/27/2024 Employment and Income Answer Date Recor ded During the last four weeks, have you been actively looking for work? No 03/27/2024 Living Situation Answer Date Recorded What is your living situation? 1 05/27/2023 Comments No Sex and Gender Information Value Date Recorded Sex Assigned at Female 03/25/2024 9:08 PM EST Legal Sex Female 10:40 AM EST Gender Identity Female 03/25/2024 9:08 PM EST Sexual Orientation Straight 03/25/2024 9: 08 PM EST Occupation Industry Job Start Date Job End Date Retired. Not on file Not on file Not on file Obstetrics History Last Filed Vital Signs Vital Sign Reading Time Taken Comments Blood Pressure 146/72 11/26/2024 9:44 AM EDT Pulse 80 11/26/2024 9:42 AM EDT Temperature 36.7 C (98 F) 11/26/2024 9:42 AM EDT Respiratory Rate 18 11/11/2024 9:17 AM EDT Oxygen Saturation 95% 11/26/2024 9:42 AM EDT Inhaled Oxygen Concentration - - Weight 56 kg (123 lb 6.4 oz) 11/26/2024 9:42 AM EDT Height 154.9 cm (5' 1 ) 11/26/2024 9:42 AM EDT Body Mass Index 23.32 11/26/2024 9:42 AM EDT Plan of Treatment Upcoming Encounters Date Type Department Care Team (Late st Contact Info) Description 02/25/2025 8:15 AM EDT Appointment [facility] CT Scan [address] [place] [phone] 02/26/2025 1:30 PM EDT Office Visit Vascular Surgery [facility] [address] [facility] [address] [place] [phone] Prachi Rudd MD [address] [place] [phone] 02/27/2025 9:45 AM EDT Office Visit Internal Medicine [facility] 175 [facility] [address] [place] [phone] Constanza Stringer, PA 175 [facility] [address] [place] [address] 03/04/2025 11:00 AM EDT Office Visit Thoracic Surgery - [place] 299 [facility] [address] [place] [phone] Jojo Cortez NP 299 [facility] [address] [place] [address] Health Maintenance Due Date Last Done Comments DTaP,Tdap,and Td Vaccines (1 - Tdap) 1967 Zoster Vaccines (1 of 2) 1998 Hepatitis C Screening 04/23/2022 Medicare Annual Wellness Visit 04/23/2022 RSV Immunization Adult Patients (1 - 1-dose 75+ series) 2023 08/15/2023 COVID-19 Vaccine ( season) 2025 06/04/2021, 08/16/2020, 07/26/2020 Influenza Vaccine (#1) 2025 , 02/14/2023, 02/03/2022, Additional history exists Social Influencers of Health Screening 03/27/2025 03/27/2024 Falls Risk Assessment 08/12/2025 08/12/2024 Hypertension/CHF/CAD Annual BMP Blood Test 12/27/2025 12/27/2024, 11/26/2024, 04/03/2024, Additional history exists Cholesterol Screening (Lipid Panel) 07/18/2028 07/19/2023 Osteoporosis Screening (Bone Density Screening) 11/30/2032 11/30/2022 Pneumococcal Vaccine: 50+ Years Completed 08/07/2018, 06/05/2018 Lung Cancer Screening (Low Dose CT) Discontinued 10/27/2021, 10/21/2020 RSV Immunization Patients Under 20 months Aged Out 08/15/2023 No longer eligible based on patient's age to complete this topic Depression Screening Completed 08/10/2024 HIB Vaccines Aged Out No longer eligi ble based on patient's age to complete this topic HPV Vaccines Aged Out No longer eligi ble based on patient's age to complete this topic Hepatitis A Vaccines Aged Out No long er eligible based on patient's age to complete this topic Hepatitis B Vaccines Aged Out No long er eligible based on patient's age to complete this topic IPV Vaccines Aged Out No longer eligi ble based on patient's age to complete this topic MMR Vaccines Aged Out No longer eligi ble based on patient's age to complete this topic Meningococcal ACWY Vaccine Aged Out N o longer eligible based on patient's age to complete this topic Meningococcal B Vaccine Aged Out No l onger eligible based on patient's age to complete this topic Varicella Vaccines Aged Out No longer eligible based on patient's age to complete this topic Procedures Procedure Name Priority Date/Time Associated Diagnosis Comments VAS US DUPLEX LOWER EXT ARTERIES BILAT WITH ZAINAB Routine 01/22/2025 9:12 AM EDT Bilateral lower extremity pain Other specified symptoms and signs involving the circulatory and respiratory systems MICROALBUMIN CREATININE URINE RATIO Routine 12/27/2024 10:00 AM EDT Elevated serum creatinine BASIC METABOLIC PANEL Routine 12/27/2024 9:51 AM EDT Elevated serum creatinine COMPREHENSIVE METABOLIC PANEL Routine 11/26/2024 10:21 AM EDT Primary hypertension THYROID STIMULATING HORMONE Routine 11/26/2024 10:21 AM EDT Hypothyroidism, unspecified type LIPID PANEL Routine 07/19/2023 FRANK DEXA AXIAL SKELETON Routine 11/30/2022 10:50 AM EDT Encounter for screening for osteoporosis CT LUNG SCREENING LOW DOSE Routine 10/27/2021 12:39 PM EDT Personal history of nicotine dependence from Last 3 Months or Most Recently Relevant to Health Maintenance Results * Vascular US duplex lower extremity arteries bilateral with ZAINAB (01/22/2025 9:12 AM EDT) Anatomical Region Laterality Modality Vascular, Abdomen Ultrasound 01/30/2025 3:05 PM EDT Impressions 01/30/2025 3:12 PM EDT Similar persistently diminished bilateral digital indices. Right leg: No significant stenosis or occlusion. Left leg: No significant stenosis or occlusion. No significant change from the prior study. -------- FINAL REPORT -------- Dictated By: Carlos Johnson Dictated Date: 01/30/2025 15:05 ET Assigned Physician: Carlos Johnson Reviewed and Electronically Signed By: Carlos Johnson Signed Date: 01/30/2025 15:12 ET Workstation ID: [id number] Transcribed By: Self Edit Transcribed Date: 01/30/2025 15:05 ET Narrative 01/30/2025 3:12 PM EDT INDICATION: Bilateral lower extremity pain TECHNIQUE: Bilateral ankle to brachial indices obtained. Arterial duplex imaging obtained of both lower extremities. Prior relevant imaging studies: September 07, 2023 Right posterior tibial index 0.99 Right dorsalis pedis index 0.98 Right digital index 0.57 Left posterior tibial index 1.02 Left dorsalis pedis index 0.97 Left digital index toes 0.46 Normal Doppler waveforms with blunted left worse than right pulse volume recordings. Right leg: Focal calcified plaque in the common femoral artery with biphasic waveforms throughout the right lower extremity. Common femoral artery: Normal velocities and waveform. Superficial femoral artery: Normal velocities and waveform. Popliteal artery: Normal velocities and waveform. Posterior tibial artery: Normal velocities and waveform. Anterior tibial artery: Normal velocities and waveform. Left leg: Focal calcified plaque in the common femoral artery with biphasic waveforms throughout the left lower extremity. Common femoral artery: Normal velocities and waveform. Superficial femoral artery: Normal velocities and waveform. Popliteal artery: Normal velocities and waveform.. Posterior tibial artery: Normal velocities and waveform. Anterior tibial artery: Normal velocities and waveform. Procedure Note Carlos Johnson MD - 01/30/2025 INDICATION: Bilateral lower extremity pain TECHNIQUE: Bilateral ankle to brachial indices obtained. Arterial dupleximaging obtained of both lower extremities. Prior relevant imaging studies: September 07, 2023 Right posterior tibial index 0.99 Right dorsalis pedis index 0.98 Right digital index 0.57 Left posterior tibial index 1.02 Left dorsalis pedis index 0.97 Left digital index toes 0.46 Normal Doppler waveforms with blunted left worse than right pulse volumerecordings. Right leg: Focal calcified plaque in the common femoral artery withbiphasic waveforms throughout the right lower extremity. Common femoral artery: Normal velocities and waveform. Superficial femoral artery: Normal velocities and waveform. Popliteal artery: Normal velocities and waveform. Posterior tibial artery: Normal velocities and waveform. Anterior tibial artery: Normal velocities and waveform. Left leg: Focal calcified plaque in the common femoral artery withbiphasic waveforms throughout the left lower extremity. Common femoral artery: Normal velocities and waveform. Superficial femoral artery: Normal velocities and waveform. Popliteal artery: Normal velocities and waveform.. Posterior tibial artery: Normal velocities and waveform. Anterior tibial artery: Normal velocities and waveform. IMPRESSION: Similar persistently diminished bilateral digital indices. Right leg: No significant stenosis or occlusion. Left leg: No significant stenosis or occlusion. No significant change from the prior study. -------- FINAL REPORT -------- Dictated By: Carlos Johnson Dictated Date: 01/30/2025 15:05 ET Assigned Physician: Carlos Johnson Reviewed and Electronically Signed By: Carlos Johnson Signed Date: 01/30/2025 15:12 ET Workstation ID: [id number] Transcribed By: Self Edit Transcribed Date: 01/30/2025 15:05 ET us Prachi Rudd MD CV VASCULAR PROCEDURES Fi nal Result * Microalbumin creatinine urine ratio (12/27/2024 10:00 AM EDT) Creatinine, Urine 70.0 mg/dL LAB CHEMISTRY METHOD 12/27/2024 2:20 PM EDT [facility] Microalb, Ur 14.0 0.0 - 29.0 mg/L LAB CHEMISTRY METHOD 12/27/2024 2:20 PM EDT [facility] Microalb/Creat Ratio 20 <30 mg/g creat LAB CHEMISTRY METHOD 12/27/2024 2:20 PM EDT [facility] Urine Urine specimen obtained by clean catch procedure / Unknown Non-blood Collection / Unknown 12/27/2024 10:00 AM EDT 12/27/2024 10:00 AM EDT Constanza WALKER LAB URINE ORDERABLES Fin al Result [facility] [address] [place] [address], [place] [phone] * (ABNORMAL) Basic metabolic panel (12/27/2024 9:51 AM EDT) Sodium 139 133 - 145 mmol/L LAB CHEMISTRY METHOD 12/27/2024 1:48 PM EDT [facility] Potassium 4.1 3.5 - 5.5 mmol/L LAB CHEMISTRY METHOD 12/27/2024 1:[facility] Chloride 104 96 - 110 mmol/L LAB CHEMISTRY METHOD 12/27/2024 1:48 [facility] CO2 28 21 - 32 mmol/L LAB CHEMISTRY METHOD 12/27/2024 1:48 PM [facility] Anion Gap 7 3 - 11 LAB CHEMISTRY METHOD 12/27/2024 1:48 PM [facility] Glucose 124(H) 70 - 100 mg/dL LAB CHEMISTRY METHOD 12/27/2024 1:48 PM EDT [facility] BUN 17 5 - 25 mg/dL LAB CHEMISTRY METHOD 12/27/2024 1:48 PM [facility] Creatinine 1.12(H) 0.50 - 1.10 mg/dL LAB CHEMISTRY METHOD 12/27/2024 1:48 PM [facility] eGFR 51(L) >=60 mL/min/1. 73m2 LAB CHEMISTRY METHOD 12/27/2024 1:48 PM T [facility] Comment:Calculation based on the Chronic Kidney Disease Epidemiology Collaboration (CKD-EPI) equation refit without adjustment for race. BUN/Creatinine Ratio 15.2 LAB CHEMISTRY METHOD 12/27/2024 1:48 PM [facility] Calcium 9.1 8.5 - 10.5 mg/dL LAB CHEMISTRY METHOD 12/27/2024 1:48 PM T [facility] Blood Venous blood specimen / Unknown Venipuncture / Unknown 12/27/2024 9:51 AM EDT 12/27/2024 9:51 AM EDT us Constanza WALKER LAB BLOOD ORDERABLES Fin al Result [facility] [address] [place] [address], * Thyroid stimulating hormone (11/26/2024 10:21 AM EDT) Pathologist [facility] TSH 3.34 0.40 - 4.00 mcIU/mL LAB CHEMISTRY METHOD 11/26/2024 4:24 PM [facility] Blood Venous blood specimen / Unknown Venipuncture / Unknown 11/26/2024 10:21 AM EDT 11/26/2024 10:21 AM EDT Constanza WALKER LAB BLOOD ORDERABLES Fin al Result [facility] [address] [place] [address], * (ABNORMAL) Comprehensive metabolic panel (11/26/2024 10:21 AM EDT) [facility] Sodium 141 133 - 145 mmol/L LAB CHEMISTRY METHOD 11/26/2024 3:14 PM [facility] Potassium 4.7 3.5 - 5.5 mmol/L LAB CHEMISTRY METHOD 11/26/2024 3:14 PM [facility] Chloride 106 96 - 110 mmol/L LAB CHEMISTRY METHOD 11/26/2024 3:14 PM [facility] CO2 30 21 - 32 mmol/L LAB CHEMISTRY METHOD 11/26/2024 3:14 PM [facility] Anion Gap 5 3 - 11 LAB CHEMISTRY METHOD 11/26/2024 3:14 PM [facility] Glucose 80 70 - 100 mg/dL LAB CHEMISTRY METHOD 11/26/2024 3:14 PM [facility] BUN 18 5 - 25 mg/dL LAB CHEMISTRY METHOD 11/26/2024 3:14 PM [facility] Creatinine 1.13(H) 0.50 - 1.10 mg/dL LAB CHEMISTRY METHOD 11/26/2024 3:14 PM [facility] eGFR 51(L) >=60 mL/min/1. 73m2 LAB CHEMISTRY METHOD 11/26/2024 3:14 PM [facility] Comment:Calculation based on the Chronic Kidney Disease Epidemiology Collaboration (CKD-EPI) equation refit without adjustment for race. BUN/Creatinine Ratio 15.9 LAB CHEMISTRY METHOD 11/26/2024 3:14 PM [facility] Calcium 9.5 8.5 - 10.5 mg/dL LAB CHEMISTRY METHOD 11/26/2024 3:14 PM [facility] AST (SGOT) 22 10 - 42 unit/L LAB CHEMISTRY METHOD 11/26/2024 3:14 PM [facility] ALT (SGPT) 25 10 - 60 unit/L LAB CHEMISTRY METHOD 11/26/2024 3:14 PM [facility] Alkaline Phosphatase 100 42 - 121 unit/L LAB CHEMISTRY METHOD 11/26/2024 3:14 PM [facility] Total Protein 7.2 6.0 - 8.0 g/dL LAB CHEMISTRY METHOD 11/26/2024 3:14 PM [facility] Albumin 4.1 3.2 - 5.0 g/dL LAB CHEMISTRY METHOD 11/26/2024 3:14 PM [facility] Total Bilirubin 0.5 0.0 - 1.4 mg/dL LAB CHEMISTRY METHOD 11/26/2024 3:14 PM [facility] Blood Venous blood specimen / Unknown Venipuncture / Unknown 11/26/2024 10:21 AM EDT 11/26/2024 10:21 AM EDT us Constanza WALKER LAB BLOOD ORDERABLES Fin al Result [facility] [address] [place] [address], [place] [phone] * (ABNORMAL) Lipid panel (07/19/2023) LDL/HDL Ratio 3 0 - 4 Triglycerides 115 0 - 150 mg/dL Cholesterol 201(A) 0 - 200 mg/dL HDL 67 >=40 mg/dL LDL Cholesterol 111(A) 0 - 100 mg/dL Blood Venous blood specimen / Unknown us Historical Provider LAB BLOOD ORDERABLES Vanesa l Result * [facility] DEXA AXIAL SKELETON (11/30/2022 10:50 AM EDT) Anatomical Region Laterality Modality Mammography 11/30/2022 10:0 7 AM EDT Narrative 11/30/2022 10:50 AM EDT [facility] Diagnostic Imaging Department [address] [place] [address] Patient: JONH MACEDO /Age/Sex: 1950 - 72 - F Unit#: [id number] Location/Status: [facility] Mnemonic/[facility]ing [facility] Ordering Physician: CONSTNAZA STRINGER PA-C [facility] Dexa Axial Skeleton - 11/30/22 - 1036 Report Status:Signed HISTORY: The patient is a 72-year-old postmenopausal female with clinical concern for metabolic bone disease. FINDINGS: Dual energy x-ray absorptiometry of the lumbar spine and femurs is performed. The mean bone mineral density at L1-L4 is 1.227 gm/cm2 which is 105% of that of young normals and 133% of that of age matched controls. This yields a T-score of 0.5 and a Z-score of 2.5 and there is therefore no evidence of osteoporosis or osteopenia here. The mean bone mineral density of the femurs bilaterally is 0.936 gm/cm2 which is 93% of that of young normals and 122% of that of age matched controls. This yields a T-score of -0.6 and a Z-score of 1.3 and there is therefore no evidence of osteoporosis or osteopenia here. However, the T-score of the right femoral neck is -1.4 and that of the left femoral neck is -1.2 which is diagnostic of osteopenia. IMPRESSION: 1. Osteopenia. 2. FRAX analysis yields a 10-year probability of major osteoporotic fracture of 16.4% and a 10-year probability of hip fracture of 2.8%. Code 78817 Dictating Physician: JORJE PANIAGUA MD Electronically Signed by: JORJE PANIAGUA MD Dic Date/Time: 11/30/22 1050 Sign date/Time: 11/30/22 105 Procedure Note Jorje Paniagua MD - 06/20/2023 [facility] Diagnostic Imaging Department [address] [place] [id number] Patient: HELLENJONH/Age/Sex: 1950 - 72 - F Unit#: [id number] [facility] Mn[facility]onic[facility] Ordering Physician: CONSTANZA STRINGER PA-C [facility] Dexa Axial Skeleton - 11/30/22 - 1037 Report Status:Signed HISTORY: The patient is a 72-year-old postmenopausal female withclinical concern for metabolic bone disease. FINDINGS: Dual energy x-ray absorptiometry of the lumbar spine and femursis performed. The mean bone mineral density at L1-L4 is 1.227 gm/cm2 which is105% of that of young normals and 133% of that of age matched controls. Thisyields a T-score of 0.5 and a Z-score of 2.5 and there is therefore no evidenceof osteoporosis or osteopenia here. The mean bone mineral density of the femurs bilaterally is 0.936 gm/gn4ifqbd is 93% of that of young normals and 122% of that of age matched controls.This yields a T-score of -0.6 and a Z-score of 1.3 and there is therefore noevidence of osteoporosis or osteopenia here. However, the T-score of the rightfemoral neck is -1.4 and that of the left femoral neck is -1.2 which is diagnosticof osteopenia. IMPRESSION: 1. Osteopenia. 2. FRAX analysis yields a 10-year probability of major osteoporoticfracture of 16.4% and a 10-year probability of hip fracture of 2.8%. Code 43548 Dictating Physician: JORJE PANIAGUA MD Electronically Signed by: JORJE PANIAGUA MD Dic Date/Time: 11/30/22 1050 Sign date/Time: 11/30/22 1050 Constanza WALKER IMMynor BI PROCEDURES Final Result * CT LUNG SCREENING LOW DOSE (10/27/2021 12:39 PM EDT) Anatomical Region Laterality Modality Computed Tomogra phy 10/27/2021 10:1 3 AM EDT Narrative 10/27/2021 12:39 PM EDT [facility] Diagnostic Imaging Department [address] [place] [id number] Patient: JONH MACEDO /Age/Sex: 1950 - 71 - F Unit#: [id number] Location/Status: SPDICATLS/REG CLI Mnemonic/Ordering Site: [facility] Ordering Physician: DENIA HANDY MD CT Lung Screening Low Dose - 10/27/21 - 1020 HISTORY: Former smoker, 45 pack year total. COMMENTS: Noncontrast Chest CT examination includes axial imaging from the lung apices through the hemidiaphragms supplemented with coronal and sagittal reformatted images utilizing low-dose screening technique ([employer], 92.68 DLP (mGy-cm), CT utilizing dose reduction technique with automated exposure control based on patient size or use of iterative reconstruction technique). Direct comparison to low-dose screening Chest CT examinations: 5383-7334 Cardiac size within normal limits. Coronary artery calcification. Most Thoracic aorta normal in caliber with atherosclerotic calcification. No gross thoracic lymphadenopathy by noncontrast CT analysis. No pericardial effusion, pleural effusion, pneumothorax. Emphysematous disease (moderately extensive) and right lower lobe parenchymal cyst. Overall mild pulmonary parenchymal scarring includes medial right lower lobe without interval developing focal alveolar consolidation. Essentially stable noncalcified less than 5 mm pulmonary nodules include for example well-defined 4 mm solid perivascular nodule in the superior segment right lower lobe (series 3 image 102) and 1 mm nodule in the lateral subpleural aspect of the right upper lobe (series 3 image 79). New noncalcified 4 mm left lower lobe endobronchial nodule (series 3 image 183) favored to represent mucoid plug formation; follow-up recommended to ensure resolution. No interval developing focal suspicious osseous abnormality by CT analysis. Cholecystectomy. IMPRESSION: Emphysematous disease and nonspecific subcentimeter pulmonary nodules by low- dose screening CT analysis; similar when compared to 6518-1124. New left lower lobe endobronchial nodule when compared to 2020 favored to represent mucoid plug formation, follow-up recommended. Please see the above report for further details. [id number] [facility] Lung RADS: Category 3 Dictating Physician: TONY RIOS DO Electronically Signed by: TONY RIOS DO Dic Date/Time: 10/27/21 1218 Sign date/Time: 10/27/21 1239 Procedure Note Tony Rios, - 05/04/2022 [facility] Diagnostic Imaging Department [address] [place] [address] Patient: JONH MACEDO /Age/Sex: 1950 - 71 - F Unit#: [id number] Location/Status: SPDICATLS/REG CLI Mnemonic[facility] Ordering Physician: DENIA HANDY MD CT Lung Screening Low Dose - 10/27/21 - 1020 HISTORY: Former smoker, 45 pack year total. COMMENTS: Noncontrast Chest CT examination includes axial imaging from the lungapices through the hemidiaphragms supplemented with coronal and sagittalreformatted images utilizing low-dose screening technique (GE, 92.68 DLP (mGy-cm),CT utilizing dose reduction technique with automated exposure control basedon patient size or use of iterative reconstruction technique). Direct comparison to low-dose screening Chest CT examinations: 5343-8540 Cardiac size within normal limits. Coronary artery calcification. Most Thoracic aorta normal in caliber with atherosclerotic calcification. No gross thoracic lymphadenopathy by noncontrast CT analysis. No pericardial effusion, pleural effusion, pneumothorax. Emphysematous disease (moderately extensive) and right lower lobeparenchymal cyst. Overall mild pulmonary parenchymal scarring includes medial right lowerlobe without interval developing focal alveolar consolidation. Essentially stable noncalcified less than 5 mm pulmonary nodules includefor example well-defined 4 mm solid perivascular nodule in the superiorsegment right lower lobe (series 3 image 102) and 1 mm nodule in the lateralsubpleural aspect of the right upper lobe (series 3 image 79). New noncalcified 4 mm left lower lobe endobronchial nodule (series 3 uynlr320) favored to represent mucoid plug formation; follow-up recommended toensure resolution. No interval developing focal suspicious osseous abnormality by CTanalysis. Cholecystectomy. IMPRESSION: Emphysematous disease and nonspecific subcentimeter pulmonary nodules bylow- dose screening CT analysis; similar when compared to 5875-4551. New left lower lobe endobronchial nodule when compared to 2020 favoredto represent mucoid plug formation, follow-up recommended. Please see the above report for further details. [id number] [facility] Lung RADS: Category 3 Dictating Physician: TONY RIOS DO Electronically Signed by: TONY RIOS DO Dic Date/Time: 10/27/21 1218 Sign date/Time: 10/27/21 1239 Denia Handy MD IMG CT PROCEDURES Final Result from Last 3 Months or Most Recently Relevant to Health Maintenance Insurance [employer] Care Teams [employer] Limousine Relationship Specialty Start Date End Date Constanza Stringer PA [address] [address] PCP - General Internal Medicine 11/27/20
--- OUTSIDE RECORDS SUMMARY | 2025-02-05 10:09 | XMS_ITS | Encounter Summary ---
Author Organization [facility] Address [address] [place] [address] Care Team Providers Care Restaurant Area Manager Name Role Phone Bob Ledbetter MD Primary Care Provider [phone] Rachel Stringer PA-C Primary Care Provider + Bob Ledbetter MD Primary Care Provider [phone] Angelic Julio-C Unavailable [phone] Rachel StringerC Primary Care Provider + Enrique Parsons-C Unavailable [phone] Mac Fowler MD Unavailable Encounter Details Date Type Department Care Team Description 10/21/2020 Allergist/Pediatric Pulmonologist Report Medical Records [address] [place] [address] [facility] [address] [place] [address] Social History Tobacco Use Types Packs/Day Years [...] on filedocumented in this encounter Care Teams Restaurant Area Manager Relationship Specialty Start Date End Date Bob Ledbetter MD PCP - General Internal Medicine 09/29/20 11/26/20 Rachel Stringer PA-C PCP - General Internal Medicine 11/27/20 07/12/22 Bob Ledbetter MD PCP - General Internal Medicine 07/13/22 04/10/23 Rachel Stringer PA-C PCP - General Internal Medicine 04/11/23 Angelic Julio PA-C [address] [phone] Thoracic Surgery 02/28/23 Enrique Parsons PA-C [address] [address] Specialist Thoracic Surgery 08/30/23 Mac Fowler MD [address] [address] Lung Cancer Electrical Appliance Repairer 03/13/24 documented as of this encounter
--- OUTSIDE RECORDS SUMMARY | 2025-02-05 10:09 | XMS_ITS | Encounter Summary ---
Author Organization [facility] Address [address] [place] [address] Care Team Providers Care Correctional Officer Name Role Phone Bob Ledbetter MD Primary Care Provider [phone] Angelic Julio PA-C Unavailable [phone] Rachel Stringer PA-C Primary Care Provider + Enrique Parsons PA-C Unavailable [phone] Mac Fowler MD Unavailable Encounter Details Date Type Department Care Team Description 02/28/2023 Orders Only [facility] Thoracic Surgery [place] [address] [facility] [address] [place] [phone] Angelic Julio PA-C 299 [facility] [address] [place] [phone] History of thoracic surgery Social History Tobacco Use Types Packs/Day Years [...] suspected to have Coronavirus/COVID-19? No / Unsure 02/28/2023 9:44 AM EDT documented as of this encounter Plan of Treatment Not on file documented as of this encounter Procedures Procedure Name Priority Date/Time Associated Diagnosis Comments CHG RADIOLOGIC EXAM CHEST 2 VIEWS Routine 02/28/2023 History of thoracic surgery documented in this encounter Results * RADIOLOGIC EXAM CHEST 2 VIEWS (02/28/2023) Angelic Julio PA-C RADIOLOGY ZAID RADIOLOGY documented in this encounter Visit Diagnoses Diagnosis History of thoracic surgery documented in this encounter Care Teams Correctional Officer Relationship Specialty Start Date End Date Bob Ledbetter MD PCP - General Internal Medicine 07/13/22 04/10/23 Rachel Stringer PA-C [address] [phone] PCP - General Internal Medicine 04/11/23 Angelic Julio PA-C [address] [phone] Thoracic Surgery 02/28/23 Enrique Parsons PA-C [address] [phone] Specialist Thoracic Surgery 08/30/23 Mac Fowler MD [address] [phone] Lung Cancer Head Sawyer Automatic 03/13/24 documented as of this encounter
--- OUTSIDE RECORDS SUMMARY | 2025-02-05 10:09 | XMS_ITS | Encounter Summary ---
Author Organization [facility] Address [address] [place] [address] Care Team Providers Care Family And Divorce Legal Assistant Name Role Phone Bob Ledbetter MD Primary Care Provider [phone] Angelic Julio PA-C Unavailable [phone] Rachel Stringer PA-C Primary Care Provider + Enrique Parsons PA-C Unavailable [phone] Mac Fowler MD Unavailable Encounter Details Date Type Department Care Team Description 02/28/2023 Orders Only Medical Records [address] [place] [address] Mac Fowler MD [address] [place] [address] Social History Tobacco Use Types Packs/Day Years [...] Name Priority Date/Time Associated Diagnosis Comments OUTSIDE PATHOLOGY Routine 02/26/2023 documented in this encounter Results * OUTSIDE PATHOLOGY (02/26/2023) Mac Fowler MD OUTSIDE LAB documented in this encounter Visit Diagnoses Not on filedocumented in this encounter Care Teams Family And Divorce Legal Assistant Relationship Specialty Start Date End Date Bob Ledbetter MD PCP - General Internal Medicine 07/13/22 04/10/23 Rachel Stringer PA-C [address] [phone] PCP - General Internal Medicine 04/11/23 Angelic Julio PA-C [address] [phone] Thoracic Surgery 02/28/23 Enrique Parsons PA-C [address] [phone] Specialist Thoracic Surgery 08/30/23 Mac Fowler MD [address] [address] Lung Cancer Riding Silks Custodian 03/13/24 documented as of this encounter
--- OUTSIDE RECORDS SUMMARY | 2025-02-05 10:09 | XMS_ITS | Encounter Summary ---
Author Organization [facility] Address [address] [place] [address] Care Team Providers Care Assurance Assistant Name Role Phone Bob Ledbetter MD Primary Care Provider [phone] Angelic Julio PA-C Unavailable [phone] Rachel Stringer PA-C Primary Care Provider + Enrique Parsons PA-C Unavailable [phone] Mac Fowler MD Unavailable Encounter Details Date Type Department Care Team Description 02/14/2023 Hospital Medical Records [address] [place] [address] Mac Fowler MD [address] [place] [address] Social History Tobacco Use Types Packs/Day Years [...] on filedocumented in this encounter Care Teams Assurance Assistant Relationship Specialty Start Date End Date Bob Ledbetter MD PCP - General Internal Medicine 07/13/22 04/10/23 Rachel Stirnger PA-C [address] [phone] PCP - General Internal Medicine 04/11/23 Angelic Julio PA-C [address] [phone] Thoracic Surgery 02/28/23 Enrique Parsons PA-C [address] [phone] Specialist Thoracic Surgery 08/30/23 Mac Fowler MD [address] [phone] Lung Cancer Custom Miller 03/13/24 documented as of this encounter
--- OUTSIDE RECORDS SUMMARY | 2025-02-05 10:09 | XMS_ITS | Encounter Summary ---
Author Organization [facility] Address [address] [place] [address] Care Team Providers Care Wheel Buffer Name Role Phone Bob Ledbetter MD Primary Care Provider [phone] Angelic Juloi PA-C Unavailable [phone] Rachel Stringer PA-C Primary Care Provider + Enrique Parsons PA-C Unavailable [phone] Mac Fowler MD Unavailable Encounter Details Date Type Department Care Team Description 03/01/2023 Orders Only Medical Records [address] [place] [address] Mac Fowler MD [address] [place] [address] Social History Tobacco Use Types Packs/Day Years [...] Date/Time Associated Diagnosis Comments OUTSIDE PATHOLOGY Routine 02/28/2023 documented in this encounter Results * OUTSIDE PATHOLOGY (02/28/2023) Mac Fowler MD OUTSIDE LAB documented in this encounter Visit Diagnoses Not on filedocumented in this encounter Care Teams Wheel Buffer Relationship Specialty Start Date End Date Bob Ledbetter MD PCP - General Internal Medicine 07/13/22 04/10/23 Rachel Stringer PA-C [address] [phone] PCP - General Internal Medicine 04/11/23 Angelic Julio PA-C [address] [phone] Thoracic Surgery 02/28/23 Enrique Parsons PA-C [address] [phone] Specialist Thoracic Surgery 08/30/23 Mac Fowler MD [address] [phone] Lung Cancer Hardware Engineering Manager 03/13/24 documented as of this encounter
--- OUTSIDE RECORDS SUMMARY | 2025-02-05 10:09 | XMS_ITS | Encounter Summary ---
Author Organization [facility] Address [address] [place] [address] Care Team Providers Care Shift Leader Name Role Phone Bob Ledbetter MD Primary Care Provider [phone] Angelic Julio PA-C Unavailable [phone] Rachel Stringer PA-C Primary Care Provider + Enrique Parsons PA-C Unavailable [phone] Mac Fowler MD Unavailable Encounter Details Date Type Department Care Team Description 02/22/2023 Orders Only Medical Records [address] [place] [address] Mac Fowler MD [address] [place] [address] Social History Tobacco Use Types Packs/Day Years [...] encounter Results * OUTSIDE PLAIN FILM (02/14/2023) Mac Fowler MD RADIOLOGY documented in this encounter Visit Diagnoses Not on filedocumented in this encounter Care Teams Shift Leader Relationship Specialty Start Date End Date Bob Ledbetter MD PCP - General Internal Medicine 07/13/22 04/10/23 Rachel Stringer PA-C [address] [phone] PCP - General Internal Medicine 04/11/23 Angelic Julio PA-C [address] [phone] Thoracic Surgery 02/28/23 Enrique Parsons PA-C [address] [address] Specialist Thoracic Surgery 08/30/23 Mac Fowler MD [address] [phone] Lung Cancer Driver Merchandiser 03/13/24 documented as of this encounter
--- OUTSIDE RECORDS SUMMARY | 2025-02-05 10:09 | XMS_ITS ---
Author Name [facility] Organization [facility] Care Team Organization Name Specialty Phone Email Start Date End Da te [facility] 01/01/2025 [facility] KEISHA MICHEL Primary Care 03/22/2022 01/01/20 24
--- OUTSIDE RECORDS SUMMARY | 2025-02-05 10:09 | XMS_ITS | Encounter Summary ---
Author Organization [facility] Address [address] [place] [address] Care Team Providers Care Computer Systems Designer Name Role Phone Bob Ledbetter MD Primary Care Provider [phone] Angelic Julio PA-C Unavailable [phone] Rachel Stringer PA-C Primary Care Provider + Enrique Parsons PA-C Unavailable [phone] Mac Fowler MD Unavailable Encounter Details Date Type Department Care Team Description 02/27/2023 Orders Only Medical Records [address] [place] [address] Mac Fowler MD [address] [place] [address] Social History Tobacco Use Types Packs/Day Years [...] Date/Time Associated Diagnosis Comments OUTSIDE PATHOLOGY Routine 02/23/2023 documented in this encounter Results * OUTSIDE PATHOLOGY (02/23/2023) Mac Fowler MD OUTSIDE LAB documented in this encounter Visit Diagnoses Not on filedocumented in this encounter Care Teams Computer Systems Designer Relationship Specialty Start Date End Date Bob Ledbetter MD PCP - General Internal Medicine 07/13/22 04/10/23 Rachel Stringer PA-C [address] [phone] PCP - General Internal Medicine 04/11/23 Angelic Julio PA-C [address] [address] Thoracic Surgery 02/28/23 Enrique Parsons PA-C [address] [address] Specialist Thoracic Surgery 08/30/23 Mac Fowler MD [address] [phone] Lung Cancer Chief Building Inspector 03/13/24 documented as of this encounter
--- OUTSIDE RECORDS SUMMARY | 2025-02-05 10:09 | XMS_ITS | Encounter Summary ---
Author Organization [facility] Address [address] [place] [address] Care Team Providers Care Recreation Therapist Name Role Phone Bob Ledbetter MD Primary Care Provider [phone] Rachel Stringer-C Primary Care Provider + Bob Ledbetter MD Primary Care Provider [phone] Rachel StringerC Primary Care Provider + Bob Ledbetter MD Primary Care Provider [phone] Angelic Julio PA-C Unavailable [phone] Rachel Stringer-C Primary Care Provider + Enrique Parsons PA-C Unavailable [phone] Mac Fowler MD Unavailable Encounter Details Date Type Department Care Team Description 08/02/2019 Business Relationship Manager Report Medical Records [address] [place] [address] Vinny Meadows MD Social History Tobacco Use Types Packs/Day Years [...] on filedocumented in this encounter Care Teams Recreation Therapist Relationship Specialty Start Date End Date Bob Ledbetter MD PCP - General Internal Medicine 04/04/18 09/08/19 Rachel Stringer PA-C [address] [place] [address] PCP - General Internal Medicine 09/09/19 09/28/20 Bob Ledbetter MD PCP - General Internal Medicine 09/29/20 11/26/20 Rachel Stringer PA-C [address] [place] [address] PCP - General Internal Medicine 11/27/20 07/12/22 Bob Ledbetter MD PCP - General Internal Medicine 07/13/22 04/10/23 Rachel Stringer PA-C [address] [place] [address] PCP - General Internal Medicine 04/11/23 Angelic Julio PA-C [address] [phone] Thoracic Surgery 02/28/23 Enrique Parsons PA-C [address] [phone] Specialist Thoracic Surgery 08/30/23 Mac Fowler MD [address] [address] Lung Cancer Deburr Technician 03/13/24 documented as of this encounter
--- OUTSIDE RECORDS SUMMARY | 2025-02-05 10:09 | XMS_ITS | Encounter Summary ---
Author Organization [facility] Address [address] [place] [address] Care Team Providers Care Supervisor Weaving Name Role Phone Bob Ledbetter MD Primary Care Provider [phone] Angelic Julio PA-C Unavailable [phone] Rachel Stringer PA-C Primary Care Provider + Enrique Parsons PA-C Unavailable [phone] Mac Fowler MD Unavailable Encounter Details Date Type Department Care Team Description 02/15/2023 Orders Only Medical Records [address] [place] [address] Enrique Parsons PA-C [address] [address] Social History Tobacco Use Types Packs/Day Years [...] Associated Diagnosis Comments OUTSIDE PLAIN FILM Routine 02/15/2023 documented in this encounter Results * OUTSIDE PLAIN FILM (02/15/2023) Enrique Parsons PA-C RADIOLOGY documented in this encounter Visit Diagnoses Not on filedocumented in this encounter Care Teams Supervisor Weaving Relationship Specialty Start Date End Date Bob Ledbetter MD PCP - General Internal Medicine 07/13/22 04/10/23 Rachel Stringer PA-C [address] [address] PCP - General Internal Medicine 04/11/23 Angelic Julio PA-C [address] [phone] Thoracic Surgery 02/28/23 Enrique Parsons PA-C [address] [address] Specialist Thoracic Surgery 08/30/23 Mac Fowler MD [address] [address] Lung Cancer Carbide Tool Maker 03/13/24 documented as of this encounter
== END 2025-02-05 09:36 | disposition home or self-care (01) ==
LOC: HO.HSM 08:50
PROVIDERS: PCP Physician Assistant; Visit Provider Nurse Practitioner
DX: R42 Dizziness and giddiness (principal)
CPT/HCPCS: 99204

== ENCOUNTER → 2025-02-05 08:49 | Outpatient (BNVA) | payer MEDICARE, SELFPAY | PROVIDERS: PCP Physician Assistant; Visit Provider Nurse Practitioner | DX: R42 Dizziness and giddiness (principal) | CPT/HCPCS: 99202 ==

== ENCOUNTER 2025-02-17 08:24 | Outpatient (REF) | payer MEDICARE, SELFPAY ==
--- OUTSIDE RECORDS SUMMARY | 2025-02-17 08:54 | XMS_ITS | Clinical Summary ---
Author Organization [facility] Address [address] [place] [address] Phone Care Team Providers Care Radio Sales Account Executive Name Role Phone Constanza Stringer Primary Care [...] general and how their size, shape, and change house attendant time affect are level of suspicion for [...] early February when she comes back from [place]. She is going to [place] from January 29 until February 12. Prior [...] - 01/22/2025 11:59 PM EDT Hospital Encounter [facility] Ultrasound [address] [place] [phone] Bilateral lower extremity pain; Other specified symptoms and signs involving the circulatory and respiratory systems Discharge Disposition: Home or Self Care 11/26/2024 9:45 AM EDT Office Visit Internal Medicine - [place] [address] [facility] [address] [place] [phone] Constanza Stringer PA Lightheadedness (Primary Dx); Primary hypertension; Hypothyroidism, unspecified type from Last 3 Months Immunizations Immunization Administration Dates Next Due Influenza trivalent, 0.5mL ( Fluzone High-dose) 65yo and older 02/03/2022,02/12/2021,05/15/2018 Pfizer SARS-CoV-2 COVID-19, mRNA, LNP-S, preservative free 06/04/2021 Pneumococcal conjugate 13 va lent (Prevnar 13, PCV13) 2mo and older 06/05/2018 Pneumococcal polysaccharide 23 valent (Pneumovax 23) 2yo and older 08/07/2018 Respiratory syncytial virus (RSV), unspecified 08/15/2023 Surgical History Surgery Date Site/Laterality Comments CHOLECYSTECTOMY PROCEDURE: HISTORICAL CHOLECYSTECTOMY TONSILLECTOMY PROCEDURE: HISTORICAL TONSILLECTOMY ANKLE SURGERY PROCEDURE: HISTORICAL ANKLE SURGERY OTHER SURGICAL HISTORY 02/14/2023 Right PROCEDURE: RI THORACOSCOPY W/LOBECTOMY SINGLE LOBE; COMMENT: RML Lobectomy Medical History Medical History Date Comments Hypothyroidism 01/08/2018 DX:Hypothyroidis m; COMMENT: Comments: Endo Dr. Meadows Vitamin D deficiency DX:Vitamin D deficiency COPD (chronic obstructive pu lmonary disease) (CMS/HCC V24, CMS/HCC V28) DX:COPD (chronic o bstructive pulmonary disease) ([facility]) Pulmonary nodules DX:Pulmonary n odules; COMMENT: CT [...] for your loved ones. For example, child and adolescent psychologist or elderly care for an older adult? [...] Date Recorded What is your living situation? Unrecognized valu e 03/27/2024 Comments No Sex and Gender Information Value [...] Info) Description 02/25/2025 8:15 AM EDT Appointment [facility] CT Scan [address] [place] [phone] 02/26/2025 1:30 PM EDT Office Visit Vascular Surgery - [place] [address] [facility] [address] [place] [phone] Prachi Rudd MD [address] [place] [phone] 02/27/2025 9:45 AM EDT Office Visit Internal Medicine [facility] [address] [facility] [address] [place] [phone] Constanza Stringer PA [address] [facility] [address] [place] [address] 03/04/2025 11:00 AM EDT Office Visit Thoracic Surgery [facility] [address] [facility] [address] [place] [phone] Jojo Cortez NP [address] [facility] [address] [place] [address] Health Maintenance Due Date Last Done Comments DTaP,Tdap,and Td Vaccines (1 - Tdap) 1967 Zoster Vaccines (1 of 2) 1998 Hepatitis C Screening 04/23/2022 Medicare Annual Wellness Visit 04/23/2022 RSV Immunization Adult Patients (1 - 1-dose 75+ series) 2023 08/15/2023 COVID-19 Vaccine ( - season) 2025 06/04/2021, 08/16/2020, 07/26/2020 Influenza Vaccine [...] Signed Date: 01/30/2025 15:12 ET Workstation ID: [id number] Transcribed By: Self Edit Transcribed Date: 01/30/2025 [...] Signed Date: 01/30/2025 15:12 ET Workstation ID: [id number] Transcribed By: Self Edit Transcribed Date: 01/30/2025 15:05 ET us Prachi Rudd MD CV VASCULAR PROCEDURES Fi nal Result * Microalbumin creatinine urine ratio (12/27/2024 10:00 AM EDT) Creatinine, Urine 70.0 mg/dL LAB CHEMISTRY METHOD 12/27/2024 2:[address] [facility] Microalb, Ur 14.0 0.0 - 29.0 mg/L LAB CHEMISTRY METHOD 12/27/2024 2:[address] [facility] Microalb/Creat Ratio 20 <30 mg/g creat LAB CHEMISTRY METHOD 12/27/2024 2:[address] [facility] Urine Urine specimen obtained by clean catch procedure / Unknown Non-blood Collection / Unknown 12/27/2024 10:00 AM EDT 12/27/2024 10:00 AM EDT Constanza WALKER LAB URINE ORDERABLES Fin al Result [facility] [address] [place] [address], * (ABNORMAL) Basic metabolic panel (12/27/2024 9:51 AM EDT) Sodium 139 133 - 145 mmol/L LAB CHEMISTRY METHOD 12/27/2024 1:[address] [facility] Potassium 4.1 3.5 - 5.5 mmol/L LAB CHEMISTRY METHOD 12/27/2024 1:[address] [facility] Chloride 104 96 - 110 mmol/L LAB CHEMISTRY METHOD 12/27/2024 1:[address] [facility] CO2 28 21 - 32 mmol/L LAB CHEMISTRY METHOD 12/27/2024 1:[address] [facility] Anion Gap 7 3 - 11 LAB CHEMISTRY METHOD 12/27/2024 1:[address] [facility] Glucose 124(H) 70 - 100 mg/dL LAB CHEMISTRY METHOD 12/27/2024 1:[address] [facility] BUN 17 5 - 25 mg/dL LAB CHEMISTRY METHOD 12/27/2024 1:[address] [facility] Creatinine 1.12(H) 0.50 - 1.10 mg/dL LAB CHEMISTRY METHOD 12/27/2024 1:[address] [facility] eGFR 51(L) >=60 mL/min/1. 73m2 LAB CHEMISTRY METHOD 12/27/2024 1:[address] [facility] Comment:Calculation based on the Chronic Kidney Disease Epidemiology Collaboration (CKD-EPI) equation refit without adjustment for race. BUN/Creatinine Ratio 15.2 LAB CHEMISTRY METHOD 12/27/2024 1:[address] [facility] Calcium 9.1 8.5 - 10.5 mg/dL LAB CHEMISTRY METHOD 12/27/2024 1:[address] [facility] Blood Venous blood specimen / Unknown Venipuncture / Unknown 12/27/2024 9:51 AM EDT 12/27/2024 9:51 AM EDT Constanza WALKER LAB BLOOD ORDERABLES Fin al Result [facility] [address] [place] [address], * Thyroid stimulating hormone (11/26/2024 10:21 AM EDT) TSH 3.34 0.40 - 4.00 mcIU/mL LAB CHEMISTRY METHOD 11/26/2024 4:[address] [facility] Blood Venous blood specimen / Unknown Venipuncture / Unknown 11/26/2024 10:21 AM EDT 11/26/2024 10:21 AM EDT Constanza WALKER LAB BLOOD ORDERABLES Fin al Result [facility] [address] [place] [address], * (ABNORMAL) Comprehensive metabolic panel (11/26/2024 10:21 AM EDT) Sodium 141 133 - 145 mmol/L LAB CHEMISTRY METHOD 11/26/2024 3:14 PM [facility] Potassium 4.7 3.5 - 5.5 mmol/L LAB CHEMISTRY METHOD 11/26/2024 3:14 PM [facility] Chloride 106 96 - 110 mmol/L LAB CHEMISTRY METHOD 11/26/2024 3:14 PM [facility] CO2 30 21 - 32 mmol/L LAB CHEMISTRY METHOD 11/26/2024 3:14 PM [facility] Anion Gap 5 3 - 11 LAB CHEMISTRY METHOD 11/26/2024 3:14 PM [facility] Glucose 80 70 - 100 mg/dL LAB CHEMISTRY METHOD 11/26/2024 3:14 PM [facility] BUN 18 5 - 25 mg/dL LAB CHEMISTRY METHOD 11/26/2024 3:14 PM [facility] Creatinine 1.13(H) 0.50 - 1.10 mg/dL LAB CHEMISTRY METHOD 11/26/2024 3:14 PM [facility] eGFR 51(L) >=60 mL/min/1. 73m2 LAB CHEMISTRY METHOD 11/26/2024 3:14 PM [facility] Comment:Calculation based on the Chronic Kidney Disease Epidemiology Collaboration (CKD-EPI) equation refit without adjustment for race. BUN/Creatinine Ratio 15.9 LAB CHEMISTRY METHOD 11/26/2024 3:14 PM [facility] Calcium 9.5 8.5 - 10.5 mg/dL LAB CHEMISTRY METHOD 11/26/2024 3:[address] [facility] AST (SGOT) 22 10 - 42 unit/L LAB CHEMISTRY METHOD 11/26/2024 3:[address] [facility] ALT (SGPT) 25 10 - 60 unit/L LAB CHEMISTRY METHOD 11/26/2024 3:[address] [facility] Alkaline Phosphatase 100 42 - 121 unit/L LAB CHEMISTRY METHOD 11/26/2024 3:[address] [facility] Total Protein 7.2 6.0 - 8.0 g/dL LAB CHEMISTRY METHOD 11/26/2024 3:[address] [facility] Albumin 4.1 3.2 - 5.0 g/dL LAB CHEMISTRY METHOD 11/26/2024 3:14 PM [facility] Total Bilirubin 0.5 0.0 - 1.4 mg/dL LAB CHEMISTRY METHOD 11/26/2024 3:[address] [facility] Blood Venous blood specimen / Unknown Venipuncture / Unknown 11/26/2024 10:21 AM EDT 11/26/2024 10:21 AM EDT Constanza WALKER LAB BLOOD ORDERABLES Fin al Result [facility] [address] [place] [address], * (ABNORMAL) Lipid panel (07/19/2023) LDL/HDL Ratio 3 0 - 4 Triglycerides 115 0 - 150 mg/dL Cholesterol 201(A) 0 - 200 mg/dL HDL 67 >=40 mg/dL LDL Cholesterol 111(A) 0 - 100 mg/dL Blood Venous blood specimen / Unknown Historical Provider LAB BLOOD ORDERABLES Vanesa l Result * [facility] DEXA AXIAL SKELETON (11/30/2022 10:50 AM EDT) Anatomical Region Laterality Modality Mammography 11/30/2022 10:0 7 AM EDT Narrative 11/30/2022 10:50 AM EDT [facility] Diagnostic Imaging Department [address] [place] [id number] Patient: JONH MACEDO /Age/Sex: 1950 - 72 - F Unit#: [id number] Location/Status: SPDIMAM/REG CLI Mnemonic[facility] Ordering Physician: CONSTANZA STRINGER PA-C Frank Dexa [...] probability of hip fracture of 2.8%. Code 17105 Dictating Physician: JORJE PANIAGUA MD Electronically Signed by: JORJE PANIAGUA MD Dic Date/Time: 11/30/22 1050 Sign date/Time: 11/30/22 105 Procedure Note Jorje Paniagua MD - 06/20/2023 [facility] Diagnostic Imaging Department [address] [place] [address] Patient: JONH MACEDO /Age/Sex: 1950 - 72 - F Unit#: [id number] Location/Status: [facility] Mnemonic/Ordering Site: [facility] Ordering Physician: CONSTANZA STRINGER PA-C [facility] Dexa Axial Skeleton - 11/30/22 - 1037 [...] density of the femurs bilaterally is 0.936 gm/yo7fyscb is 93% of that of young normals [...] probability of hip fracture of 2.8%. Code 38091 Dictating Physician: JORJE PANIAGUA MD Electronically Signed by: JORJE PANIAGUA MD Dic Date/Time: 11/30/22 105 Sign date/Time: 11/30/22 105 us Constanza WALKER IMMynor BI PROCEDURES Final Result * CT LUNG SCREENING LOW DOSE (10/27/2021 12:39 PM EDT) Anatomical Region Laterality Modality Computed Tomogra phy 10/27/2021 10:1 3 AM EDT Narrative 10/27/2021 12:39 PM EDT [facility] Diagnostic Imaging Department [address] [place] [address] Patient: JONH MACEDO /Age/Sex: 1950 - 71 - F Unit#: [id number] Location/Status: SPDICATLS/REG CLI Mnemonic/Ordering Site: [facility] Ordering Physician: DENIA HANDY MD CT Lung Screening Low Dose - 10/27/21 - 1020 HISTORY: Former smoker, 45 pack year total. COMMENTS: Noncontrast Chest CT examination includes axial imaging from the lung apices through the hemidiaphragms supplemented with coronal and sagittal reformatted images utilizing low-dose screening technique (Acronis, 92.68 DLP (mGy-cm), CT utilizing dose reduction technique with automated exposure control based on patient size or use of iterative reconstruction technique). Direct comparison to low-dose screening Chest CT examinations: 4481-1675 Cardiac size within normal limits. Coronary artery [...] screening CT analysis; similar when compared to 3954-4872. New left lower lobe endobronchial nodule when compared to 2020 favored to represent mucoid plug formation, follow-up recommended. Please see the above report for further details. [id number] [facility] Lung RADS: Category 3 Dictating Physician: TONY RIOS DO Electronically Signed by: TONY RIOS DO Dic Date/Time: 10/27/21 1218 Sign date/Time: 10/27/21 1239 Procedure Note Tony Rios, - 05/04/2022 [facility] Diagnostic Imaging Department [address] [place] [id number] Patient: JONH MACEDO /Age/Sex: 1950 - 71 - F Unit#: [id number] Location/Status: SPDICATLS/REG CLI Mnemonic/Ordering Site: [facility] Ordering Physician: DENIA HANDY MD CT Lung Screening Low Dose - 10/27/21 - 1020 HISTORY: Former smoker, 45 pack year total. COMMENTS: Noncontrast Chest CT examination includes axial imaging from the lungapices through the hemidiaphragms supplemented with coronal and sagittalreformatted images utilizing low-dose screening technique (Acronis, 92.68 DLP (mGy-cm),CT utilizing dose reduction technique with automated exposure control basedon patient size or use of iterative reconstruction technique). Direct comparison to low-dose screening Chest CT examinations: 1398-6163 Cardiac size within normal limits. Coronary artery [...] left lower lobe endobronchial nodule (series 3 [id number]) favored to represent mucoid plug formation; follow-up recommended toensure resolution. No interval developing focal suspicious osseous abnormality by CTanalysis. Cholecystectomy. IMPRESSION: Emphysematous disease and nonspecific subcentimeter pulmonary nodules bylow- dose screening CT analysis; similar when compared to 2638-5159. New left lower lobe endobronchial nodule when compared to 202 favoredto represent mucoid plug formation, follow-up recommended. [...] Maintenance Insurance [employer] Care Teams Radio Sales Account Executive Relationship Specialty Start Date End Date Constanza Stringer PA [address] [facility] [address] [place] [address] PCP - General Internal Medicine 11/27/20
--- OUTSIDE RECORDS SUMMARY | 2025-02-17 08:54 | XMS_ITS | Clinical Summary ---
Author Organization [facility] Address [address] [place] [address] Care Team Providers Care Endoscopy Support Specialist Name Role Phone Jojo August Primary Care [...] age to complete this topic Care Teams Endoscopy Support Specialist Relationship Specialty Start Date End Date Jojo August PA PCP - General Physician Commercial Lender 05/07/18
--- OUTSIDE RECORDS SUMMARY | 2025-02-17 08:54 | XMS_ITS | Continuity of Care Document ---
Author Organization [facility] Address [address] [facility] [address] [place] [address] Phone [phone] Care Team Providers Care Tenant Selector Name Role Phone Bob Ledbetter M.D. Care Team Information Receive r [phone] Problems Active Problems Provider Date Geeta thyroiditis Vinny Meadows M.D. Onse t: 09/21/2022 Hypothyroidism Vinny Meadows M.D. Onset: 02/2023 Essential hypertension Vinny Meadows M.D. Ons et: 09/21/2022 Complex regional pain syndrome Vinny Meadows M.D. Onset: 09/21/2022 Social History Type Date Description Comments Sex Female Sex Unknown Tobacco Use Start: Unknown End: Unknown Quit 2009 ETOH Use Occasionally consumes alcoho l Tobacco Use Start: Unknown End: Unknown Patient is a former smoker Allergies and adverse reactions Description No Known Drug Allergies Medications Active Medications SIG Qnty Indications Ordering Provider Date Amitriptyline [id number] Tablets take 1 or 2 tabs at hs 60tabs Vinny Meadows M.D. 09/21/2022 Levothyroxine [id number] Tablets Take 1 Tablet By Mouth Daily 90tabs Vinny Meadows M.D. 09/19/2022 Janklydyud7ly Tablets 1 by mouth every day 90tabs Rachel Stringer PA-C [id number] Capsules Take 1 Capsule By Mouth Twice Daily Unknown Cetirizine [id number] Tablets Take 1 Tablet By Mouth Every Day Bob Ledbetter M.D. Vital Signs Date Vital Result Comment 09/21/2022 10:09am Height 61 inches 5'1 Weight 122.00 lb BMI (Body Mass Index) 23.0 kg/m2 Results Test Acquired Date Facility Test Result H/L Range N ote TSH With Reflex To FT4 09/21/2022 [facility] TSH With Reflex To FT4 2.44 uIU/mL (0.4-4.2) Medical Devices Description No Information Available Encounters Type Date Location Provider Dx Diagnosis Office Visit 09/21/2022 10:15a Main Office Vinny Meadows M.D. E03.9 Hypothyroidism, unspecified G90.50 Complex regional dwayne n syndrome I, unspecified I10 Essential (primary) hypertension Assessments Date Code Description Provider 09/21/2022 E03.9 Hypothyroidism, unspecified Vinny Meadows M.D. 09/21/2022 G90.50 Complex regional pain syndro me Vinny Meadows M.D. 09/21/2022 I10 Essential hypertension Vinny Meadows M.D. Plan of Treatment 09/21/2022 - Vinny Meadows M.D.* E03.9 Hypothyroidism, unspecified * G90.50 Complex regional pain syndrome * I10 Essential hypertension * Functional Status Description No Information Available Mental Status Description No Information Available Referrals Refer to Dr Reason for Referral Status Appt Shashank e Vinny Meadows M.D. Created [address] [place] [address] Drive [address] [place] [address] [phone] Vinny Meadows M.D. Created [address] [place] [address] Drive [address] [place] [address] [phone] Vinny Meadows M.D. Created [address] [place] [address] Drive [address] [place] [address] [phone]
--- NOTE | 2025-02-17 10:03 | EEG_ITS ---
Roomed Performed:?402 Reason: Dizziness, vertigo History: Vitamin D deficiency, COPD, Hypertension, Lung cancer Medication: amlodipine Technical description:? Photic stimulation: Completed Hyperventilation:?Completed Behavioral state: cooperative State of Consciousness: awake Skull defect: None Sedation: None Handedness: Right Duration of study:? 30min ? ?32 sec Description: This is a 16 channel EEG with an EKG lead. Patient is reported awake during the tracing. Background EEG rhythm is 12-14 hertz 5-100 microvolt posteriorly lower amplitude fast anteriorly. Photic stimulation does not produce any significant driving. Hyperventilation is unremarkable. Cardiac lead does not reveal any significant abnormality. No sharp wave spikes or paroxysmal tendency noted. Impression: Unremarkable EEG. MTDD
== END 2025-02-17 08:25 | disposition home or self-care (01) ==
LOC: HO.NEURO 08:24
PROVIDERS: PCP Internal Medicine; Visit Provider Psychiatry & Neurology Neurology
DX: R42 Dizziness and giddiness (principal)
CPT/HCPCS: 95708

== ENCOUNTER → 2025-02-17 10:03 | Outpatient (BNV) | payer MEDICARE, SELFPAY | PROVIDERS: PCP Internal Medicine; Visit Provider Psychiatry & Neurology Neurology | DX: R42 Dizziness and giddiness (principal) | CPT/HCPCS: 95816 ==

== ENCOUNTER → 2025-03-06 12:47 | Outpatient (BNV) | payer MEDICARE, SELFPAY | PROVIDERS: PCP Internal Medicine; Visit Provider Radiology Diagnostic Radiology | DX: R42 Dizziness and giddiness (principal) | CPT/HCPCS: 70544; 70549 ==

== ENCOUNTER 2025-03-06 12:54 | Outpatient (REF) | payer MEDICARE, SELFPAY ==
--- OUTSIDE RECORDS SUMMARY | 2025-03-04 11:00 | XMS_ITS | Encounter Summary ---
Author Organization [facility] Address [address] [place] [address] Care Team Providers Care Product Safety Head Name Role Phone Rachel Stringer Primary Care Provider + Reason for Referral * Imaging (Routine) - Pending Review Specialty Diagnoses / Procedures Referred By Blas ahumada Referred To Contact Radiology Diagnoses History of lung cancer Procedures CT Chest wo Contrast Jojo Cortez NP [address] [address] Phone: tel: fax: [facility] Referral ID Status Reason Start Date Expiration Date V isits Requested Visits Authorized [id number] Pending Review 03/04/2025 03/04/2026 1 1 Reason for Visit * Reason Comments office visit Chest CT 02/25/25 Encounter Details Date Type Department Care Team (Late st Contact Info) Description 03/04/2025 11:00 AM EDT Office Visit Thoracic Surgery - [place] [address] [address] Jojo Cortez NP 299 [facility] [address] [place] [id number] History of lung cancer Social History Tobacco [...] care for your loved ones. For example, children's aide or elderly care for an older adult? [...] on file documented as of this encounter Last Filed Vital Signs Vital Sign Reading Time Taken Comments Blood Pressure 129/72 03/04/2025 10:40 AM EDT Pulse 73 03/04/2025 10:40 AM EDT Temperature 36.7 C (98.1 F) 03/04/2025 10:40 AM EDT Respiratory Rate 18 03/04/2025 10:40 AM EDT Oxygen Saturation 99% 03/04/2025 10:40 AM EDT Inhaled Oxygen Concentration - - Weight 55.1 kg (121 lb 8 oz) 03/04/2025 10:40 AM EDT Height 154.9 cm (5' 1 ) 03/04/2025 10:40 AM EDT Body Mass Index 22.96 03/04/2025 10:40 AM EDT documented in this encounter Progress Notes * Jojo Cortez NP - 03/04/2025 11:00 AM EDT Images from the original note were not included. Thoracic Surgery Follow Up Visit Patient name: Justine Alvarado : 1950 Date of Visit: March 04, 2025 Care Team PCP: DENISE Craven Reason for Visit Chief Complaint Patient presents with office visit Chest CT 02/25/25 History of Present Illness Ms. Alvarado is a 74 y.o. female former smoker on February 14, 2023 had a da Jerry right middle lobectomy and pleural biopsy for stage Ia adenocarcinoma. A routine 6-month surveillance chest CT scan done in August 2023, showed a concern for an enlarging 3 mm left lower lobe pulmonary nodule from previousscan as read by the radiologist, but after review by a colleague of these scan, a difference was tristan ble to be appreciated. Follow up chest Ct's have shown continued stability in that nodule in question. She presents today for her next [address] scan. Patient has been doing very well over the past several months. She denies any new or worrisome symptoms such as new or worsening shortness of breath, cough, hemoptysis, unexplained weight loss, drenching night sweats, fever or chills. Medical History[1] Problem List[2] Surgical History[3] Allergies[4] Medications Ordered Prior to Encounter[5] Social History[6] Social History Social History Narrative 12/2019, 3 kids, 6 grandchildren. Living in law apartment with son. Daughter lives nearby Retired. Review of Systems Review of Systems Constitutional: Negative for chills, fever, night sweats and weight loss. Cardiovascular: Negative for chest pain, dyspnea on exertion and palpitations. Respiratory: Negative for cough, hemoptysis and shortness of breath. Gastrointestinal: Negative for abdominal pain, nausea and vomiting. Physical Exam Vitals: 03/04/25 1040 BP: 129/72 BP Location: Left arm Patient Position: Sitting BP Cuff Size: Adult Pulse: 73 Resp: 18 Temp: 36.7 ??C (98.1 ??F) TempSrc: Temporal SpO2: 99% Weight: 55.1 kg (121 lb 8 oz) Height: 1.549 m (61 ) Physical Exam Vitals reviewed. Constitutional: Appearance: Normal appearance. HENT: Head: Normocephalic and atraumatic. Eyes: General: No scleral icterus. Cardiovascular: Rate and Rhythm: Normal rate and regular rhythm. Pulmonary: Effort: Pulmonary effort is normal. Breath sounds: Normal breath sounds. Chest: Comments: Multiple well healed surgical incisions with no nodularity or erythema. Abdominal: Palpations: Abdomen is soft. Neurological: General: No focal deficit present. Mental Status: She is alert and oriented to person, place, and time. Psychiatric: Mood and Affect: Mood normal. Behavior: Behavior normal. Radiology I personally viewed the patient's current and past imaging studies, in addition to reviewing the dictated report from the reading radiologist. CT Chest wo Contrast Narrative: EXAMINATION: CT CHEST WITHOUT CONTRAST CLINICAL INFORMATION: Right middle lobectomy. Evaluate for interval changes COMPARISON: Portions of previous 08/13/24 TECHNIQUE: Multidetector CT. Examination of the chest. Examination of the chest without IV contrast. Reformatting in the coronal and sagittal planes. DLP: 305 mGy-cm Dose optimization was performed including the use of low-dose iterative reconstruction technique with automatic exposure control based on patient size. Type of contrast: None Volume of IV contrast: None Volume of contrast discarded: 0 mL FINDINGS: Digital filteration operator demonstrates absence or asymmetric breast shadows. Motion limits detail at the lung bases. LUNG: No suspicious abnormality of the trachea or mainstem bronchi. No abnormality at the right middle lobectomy stump. Unchanged pleural associated density abutting the pleural reflection anterior right upper lobe (4/55). Unchanged 0.4 cm solid nodule posterior aspect superior segment right lower lobe (4/102) There is severe underlying emphysema. There are coarse reticular opacities greater on the left. No honeycomb formation. There are a few typically benign pleural associated nodules and some probable scattered granulomata. No new suspicious mass or nodule. MEDIASTINUM: There are no enlarged mediastinal or hilar lymph nodes. No suspicious abnormality of the esophagus CARDIAC: The heart is not enlarged. No pericardial fluid or thickening CORONARY CALCIFICATION: There are marked coronary calcifications. VASCULAR: There is no thoracic aortic aneurysm. The central pulmonary arteries are prominent. PLEURA: There is no pleural fluid or pneumothorax AXILLA/CHEST WALL: There are no enlarged axillary lymph nodes. No chest wall mass demonstrated VISUALIZED UPPER ABDOMEN: No suspicious abnormality on limited assessment of the visualized upper abdomen MUSCULOSKELETAL: No suspicious focal bony lesion. Gas in the spinal canal breast related to vacuum phenomena at L1/L2. Impression: No evidence of residual recurrent disease at the right middle lobe. Underlying emphysema. No new suspicious mass or nodule -------- FINAL REPORT -------- Dictated By: Tristin Boston Dictated Date: 02/27/2025 16:09 ET Assigned Physician: Tristin Boston Reviewed and Electronically Signed By: Tristin Boston Signed Date: 02/27/2025 16:21 ET Workstation ID: [id number] Transcribed By: Self Edit Transcribed Date: 02/27/2025 16:09 ET Assessment and Plan Problem List Items Addressed This Visit History of lung cancer Ms. Alvarado is a 74 y.o. female, former smoker on February 14, 2023 had a da Jerry right middle lobectomy and pleural biopsy for stage Ia adenocarcinoma. Her most recent chest CT surveillance scan was performed on 02/25/25 which showed stable appearanceof scattered pulmonary nodules with no evidence of pleural effusion or pneumothorax. Per NCCN guidelines we will continue with 6-month chest CT surveillance screenings for the first 2 years following her surgical date and then to 1 year intervals thereafter for a total surveillance screenings of [address] scan will be due in August 2025 and she will have a visit with the thoracic surgery department following the scan to discuss the results. Patient told to call the office should she have any questions or concerns prior to their next appointment. Patient has been instructed to call the office prior with any questions or concerns. Jojo Cortez NP [facility] Thoracic Surgery [address] [place] [address], [address] [facility] [address] [1] Past Medical History: Diagnosis Date COPD (chronic obstructive pulmonary disease) ([facility] V24, [facility] V28) DX:COPD (chronic obstructive pulmonary disease) (HCC) History of COVID-19 04/11/2020 DX:History of COVID-19; COMMENT: had 03/2020 and 04/2021 HTN (hypertension) Hypothyroidism 01/08/2018 DX:Hypothyroidism; COMMENT: Comments: Jaziel Meadows Osteopenia 12/31/2019 DX:Osteopenia; COMMENT: femoral neck and hip per BMD Pulmonary nodules DX:Pulmonary nodules; COMMENT: CT chest 03/08/19, 10/19/19- stable repeat 1 year - Dr. Fowler Vitamin D deficiency DX:Vitamin D deficiency [2] Patient Active Problem List Diagnosis Allergic rhinitis COPD (chronic obstructive pulmonary disease) ([facility] V24, [facility] V28) Hypothyroidism Osteopenia Pulmonary nodule 1 cm or greater in diameter Vitamin D deficiency HTN (hypertension) History of lung cancer Malignant neoplasm of unspecified part of unspecified bronchus or lung ([facility] V24, [facility] V28) [3] Past Surgical History: Procedure Laterality Date ANKLE SURGERY PROCEDURE: HISTORICAL ANKLE SURGERY CHOLECYSTECTOMY PROCEDURE: HISTORICAL CHOLECYSTECTOMY OTHER SURGICAL HISTORY Right 02/14/2023 PROCEDURE: WA THORACOSCOPY W/LOBECTOMY SINGLE LOBE; COMMENT: RML Lobectomy TONSILLECTOMY PROCEDURE: HISTORICAL TONSILLECTOMY [4] No Known Allergies [5] Current Outpatient Medications on File Prior to Visit Medication Sig Dispense Refill amLODIPine (NORVASC) 5 mg tablet Take 1 tablet (5 mg total) by mouth 1 (one) time each day. 90 tablet 3 aspirin 81 mg EC tablet Take 1 tablet (81 mg total) by mouth 1 (one) time each day. cetirizine (ZyrTEC) 10 mg tablet TAKE 1 TABLET BY MOUTH EVERY DAY 90 tablet 1 cholecalciferol (VITAMIN D-3) 50 mcg (2,000 unit) capsule Take 1 Cap by mouth daily. cyanocobalamin 2,000 mcg tablet Take 1 tablet (2,000 mcg total) by mouth 1 (one) time per week. fluticasone propionate (FLONASE) 50 mcg/actuation nasal spray Administer 2 sprays into each nostril1 (one) time each day. Shake gently. Before first use, prime pump. After use, clean tip and replacecap. 16 g 1 levothyroxine (SYNTHROID, LEVOTHROID) 75 mcg tablet Take 1 tablet (75 mcg total) by mouth 1 (one) time each day before breakfast. 6 days/week, skip seventh day. 90 tablet 3 magnesium 250 mg tablet Take 1 Tablet by mouth at bedtime. [DISCONTINUED] amLODIPine (NORVASC) 5 mg tablet Take 1 tablet (5 mg total) by mouth 1 (one) time each day. [DISCONTINUED] levothyroxine (SYNTHROID, LEVOTHROID) 75 mcg tablet Take 1 tablet (75 mcg total) by mouth 1 (one) time each day before breakfast. 6 days/week, skip seventh day. No current facility-administered medications on file prior to visit. [6] Social History Tobacco Use Smoking status: Former Current packs/day: 0.00 Average packs/day: 1 pack/day for 42.0 years (42.0 ttl pk-yrs) Types: Cigarettes Start date: 06/05/1967 Quit date: 06/05/2009 Years since quittin.7 Smokeless tobacco: Never Substance Use Topics Alcohol use: Yes Drug use: No * Jojo Cortez NP - 03/03/2025 12:11 PM EDTAssociated Problem(s): History of lung cancer Ms. Alvarado is a 74 y.o. female, former smoker on February 14, 2023 had a da Jerry right middle lobectomy and pleural biopsy for stage Ia adenocarcinoma. Her most recent chest CT surveillance scan was performed on 02/25/25 which showed stable appearanceof scattered pulmonary nodules with no evidence of pleural effusion or pneumothorax. Per NCCN guidelines we will continue with 6-month chest CT surveillance screenings for the first 2 years following her surgical date and then to 1 year intervals thereafter for a total surveillance screenings of [address] scan will be due in August 2025 and she will have a visit with the thoracic surgery department following the scan to discuss the results. Patient told to call the office should she have any questions or concerns prior to their next appointment. Patient has been instructed to call the office prior with any questions or concerns. documented in this encounter Plan of Treatment Upcoming Encounters Date Type Department Care Team (Late st Contact Info) Description 06/04/2025 9:30 AM EST Office Visit Internal Medicine - [place] 175 [facility] [address] [place] [address] Rachel Stringer PA [address] [address] Scheduled Orders Name Type Priority Associated Diagnoses Orde r Schedule CT Chest wo Contrast Imaging Routine History of lung cancer Expected: 09/02/2025, Expires: 03/04/2026 documented as of this encounter Visit Diagnoses Diagnosis History of lung cancer Personal history of malignant neoplasm of bronchus and lung documented in this encounter Additional Health Concerns Assessment Noted Time PHQ-9 Depression Total Score: 0 08/11/19 10:33 AM EDT documented as of this encounter Care Teams Product Safety Head Relationship Specialty Start Date End Date Rachel Stringer PA 175 [facility] [address] [place] [address] PCP - General Internal Medicine 11/27/20 documented as of this encounter
--- NOTE | ~2025-03-06 | MR_ITS ---
EXAMINATION: MR ANGIOGRAPHY BRAIN WITHOUT CONTRAST CLINICAL INFORMATION: Dizziness and giddiness. R42 COMPARISON: None available. TECHNIQUE: 3-D [id number]. Maximum intensity projections [place]. FINDINGS: Anterior cervical circulation: ICAs: No flow signal gap or abrupt cut off. MCA's: No flow signal gap or abrupt cut off. Bifurcation/trifurcation demonstrated no flow signal irregularity. ACAs: No flow signal gap or abrupt cut off. Ophthalmic arteries flow signal is normal. Posterior communicating arteries flow signal is normal. Anterior communicating artery flow signal is normal. Posterior cerebral circulation: V3/V4 segments: No flow signal gap or intimal flap. Right vertebral artery is dominant. Posterior inferior cerebral arteries flow signal is normal. Basilar artery flow signal is normal. Superior cerebellar arteries flow signal is normal. restaurant expeditor: No flow signal gap or abrupt cut off. MR/MR angio neck wo/w con IMPRESSION: No main cerebral artery occlusion or embolus or gross aneurysm. Complete [place]. EXAMINATION: MR ANGIOGRAPHY NECK WITH IV CONTRAST CLINICAL INFORMATION: Dizziness and giddiness. R42 COMPARISON: None available. TECHNIQUE: 3-D [id number]. Coronal 3-D postcontrast. Total of 10 cc of gadolinium based (Gadavist) without reported immediate complications. FINDINGS: Thoracic aortic arch demonstrates normal patency caliber without intimal flap or focal stenosis. Right CCA: Normal patency. No focal stenosis. No intimal flap. Right ICA: Tortuosity. Retropharyngeal trajectory. Normal patency. No focal stenosis. No intimal flap. Left CCA: Normal patency. No focal stenosis. No intimal flap. Left ICA: Normal patency. No focal stenosis. No intimal flap. V1/V2 segments: Normal patency. No focal stenosis. No intimal flap. Right vertebral artery slightly dominant. The origin is directly from the subclavian arteries. IMPRESSION: Normal MRA neck. Electronically signed by: Lazaro Bhagat MD 03/06/2025 02:56 PM EDT
--- NOTE | ~2025-03-06 | MR_ITS ---
EXAMINATION: MR ANGIOGRAPHY BRAIN WITHOUT CONTRAST CLINICAL INFORMATION: Dizziness and giddiness. R42 COMPARISON: None available. TECHNIQUE: 3-D [id number]. Maximum intensity projections [place]. FINDINGS: Anterior cervical circulation: ICAs: No flow signal gap or abrupt cut off. MCA's: No flow signal gap or abrupt cut off. Bifurcation/trifurcation demonstrated no flow signal irregularity. ACAs: No flow signal gap or abrupt cut off. Ophthalmic arteries flow signal is normal. Posterior communicating arteries flow signal is normal. Anterior communicating artery flow signal is normal. Posterior cerebral circulation: V3/V4 segments: No flow signal gap or intimal flap. Right vertebral artery is dominant. Posterior inferior cerebral arteries flow signal is normal. Basilar artery flow signal is normal. Superior cerebellar arteries flow signal is normal. movement education specialist: No flow signal gap or abrupt cut off. MR/MR angio head wo con IMPRESSION: No main cerebral artery occlusion or embolus or gross aneurysm. Complete [place]. EXAMINATION: MR ANGIOGRAPHY NECK WITH IV CONTRAST CLINICAL INFORMATION: Dizziness and giddiness. R42 COMPARISON: None available. TECHNIQUE: 3-D [id number]. Coronal 3-D postcontrast. Total of 10 cc of gadolinium based (Gadavist) without reported immediate complications. FINDINGS: Thoracic aortic arch demonstrates normal patency caliber without intimal flap or focal stenosis. Right CCA: Normal patency. No focal stenosis. No intimal flap. Right ICA: Tortuosity. Retropharyngeal trajectory. Normal patency. No focal stenosis. No intimal flap. Left CCA: Normal patency. No focal stenosis. No intimal flap. Left ICA: Normal patency. No focal stenosis. No intimal flap. V1/V2 segments: Normal patency. No focal stenosis. No intimal flap. Right vertebral artery slightly dominant. The origin is directly from the subclavian arteries. IMPRESSION: Normal MRA neck. Electronically signed by: Lazaro Bhagat MD 03/06/2025 02:56 PM EDT
--- OUTSIDE RECORDS SUMMARY | 2025-03-06 16:05 | XMS_ITS | Continuity of Care Document ---
Author Organization [facility] Address [address] [place] [address] Phone [phone] Care Team Providers Care [employer] Name Role Phone Bob Ledbetter M.D. Care Team Information Receive r [phone] Problems Active Problems Provider Date Geeta thyroiditis [...] SIG Qnty Indications Ordering Provider Date Amitriptyline [id number] Tablets take 1 or 2 tabs at hs 60tabs Vinny Meadows M.D. 09/21/2022 Levothyroxine [id number] Tablets Take 1 Tablet By Mouth Daily 90tabs Vinny Meadows M.D. 09/19/2022 [id number] Tablets 1 by mouth every day 90tabs Rachel Stringer PA-C [id number] Capsules Take 1 Capsule By Mouth Twice Daily Unknown Cetirizine [id number] Tablets Take 1 Tablet By Mouth Every Day Bob Ledbetter M.D. Vital Signs Date Vital Result Comment 09/21/2022 10:09am Height 61 inches 5'1 Weight 122.00 lb BMI (Body Mass Index) 23.0 kg/m2 Results Test Acquired Date Facility Test Result H/L Range N ote TSH With Reflex To FT4 09/21/2022 [facility] TSH With Reflex To FT4 [...] Appt Shashank e Vinny Meadows M.D. Created [address] [place] [address] Drive [address] [place] [address] [phone] Vinny Meadows M.D. Created [address] [place] [address] Drive [address] [place] [address] [phone] Vinny Meadows M.D. Created [address] [place] [address] Drive [address] [place] [address] [phone]
--- OUTSIDE RECORDS SUMMARY | 2025-03-06 16:05 | XMS_ITS | Clinical Summary ---
Author Organization [facility] Address [address] [place] [address] Phone Care Team Providers Care Mower Sharpener Name Role Phone Constanza Stringer Primary Care [...] mouth 1 (one) time each day. Active cetirizine (ZyrTEC) 10 mg tablet TAKE 1 TABLET BY MOUTH EVERY DAY 90 tablet 1 5 Active levothyroxine (SYNTHROID, LEVOTHROID) 75 mcg tabletIndication s:Hypothyroidism , unspecified type Take 1 tablet (75 mcg total) by mouth 1 (one) time each day before breakfast. 6 days/week, skip seventh day. 90 tablet 3 5 Active amLODIPine (NORVASC) 5 mg tabletIndication s:Primary hypertension Take 1 tablet (5 mg total) by mouth 1 (one) time each day. 90 tablet 3 5 Active levothyroxine (SYNTHROID, LEVOTHROID) 75 mcg tabletIndication s:Hypothyroidism , unspecified type Take 1 tablet (75 mcg total) by mouth 1 (one) time each day before breakfast. 6 days/week, skip seventh day. 5 025 Discontin ued(Reord er) amLODIPine (NORVASC) 5 mg tablet Take 1 tablet (5 mg total) by mouth 1 (one) time each day. 025 Discontin ued(Reord er) Active Problems Problem Noted Date Diagnosed Date Malignant neoplasm of unspec ified part of unspecified bronchus or lung (CMS/HCC V24, CMS/HCC V28) 02/27/2025 History of lung cancer 08/26/2024 Assessment & Plan (03/04/2025 11:02 AM EDT): Ms. Macedo is a 74 y.o. female, former smoker on February 14, 2023 had a da Jerry right middle lobectomy and pleural biopsy for stage Ia adenocarcinoma. Her most recent chest CT surveillance scan was performed on 02/25/25 which showed stable appearance of scattered pulmonary [...] office prior with any questions or concerns. Assessment & Plan (08/26/2024 2:12 PM EDT): [...] general and how their size, shape, and spinning frame changer time affect are level of suspicion for [...] early February when she comes back from [place]. She is going to [place] from January 29 until February 12. Prior [...] Encounters Date Type Department Care Team Description 03/04/2025 11:00 AM EDT Office Visit Thoracic Surgery - [place] [address] [facility] [address] [place] [phone] Jojo Cortez NP History of lung cancer 02/27/2025 9:45 AM EDT Office Visit Internal Medicine [facility] [address] [facility] [address] [place] [phone] Constanza Stringer PA Primary hypertension (Primary Dx); Hypothyroidism, unspecified type; Chronic obstructive pulmonary disease, unspecified COPD type ([facility] V24, [facility] V28); Malignant neoplasm of unspecified part of unspecified bronchus or lung ([facility] V24, [facility] V28) 02/26/2025 1:30 PM EDT Office Visit Vascular Surgery [facility] [address] [facility] [address] [place] [phone] Prachi Rudd MD PAD (peripheral artery disease) ([facility] V24) (Primary Dx) 02/25/2025 7:55 AM EDT - 02/25/2025 11:59 PM EDT Hospital Encounter [facility] CT Scan [address] [place] [phone] History of lung cancer Discharge Disposition: Home or Self Care 01/22/2025 8:14 AM EDT - 01/22/2025 11:59 PM EDT Hospital Encounter [facility] Ultrasound [address] [place] [phone] Bilateral lower extremity pain; Other specified symptoms and signs involving the circulatory and respiratory systems Discharge Disposition: Home or Self Care from Last 3 Months Immunizations Immunization Administration Dates Next Due Influenza trivalent, 0.5mL ( Fluad) 65yo and older 02/27/2025 Influenza trivalent, 0.5mL ( Fluzone High-dose) 65yo [...] SURGERY OTHER SURGICAL HISTORY 02/14/2023 Right PROCEDURE: MN THORACOSCOPY W/LOBECTOMY SINGLE LOBE; COMMENT: RML Lobectomy Medical History Medical History Date Comments Hypothyroidism 01/08/2018 DX:Hypothyroidis m; COMMENT: Comments: Endo Dr. Meadows Vitamin D deficiency DX:Vitamin D deficiency COPD (chronic obstructive pu lmonary disease) ([facility]/HCC V24, [facility]/HCC V28) DX:COPD (chronic o bstructive pulmonary disease) ([facility]) Pulmonary nodules DX:Pulmonary n odules; COMMENT: [...] for your loved ones. For example, children's minister or elderly care for an older adult? [...] Mass Index 22.96 03/04/2025 10:40 AM EDT Plan of Treatment Upcoming Encounters Date Type Department Care Team (Late st Contact Info) Description 06/04/2025 9:30 AM EST Office Visit Internal Medicine - [place] [address] [place] [phone] Constanza Stringer PA [address] [place] [address] Health Maintenance Due Date Last Done Comments DTaP,Tdap,and Td Vaccines (1 - Tdap) 1967 Zoster Vaccines (1 of 2) 1998 Hepatitis C Screening 04/23/2022 Medicare Annual Wellness Visit 04/23/2022 RSV Immunization Adult Patients (1 - 1-dose 75+ series) 2023 08/15/2023 COVID-19 Vaccine ( season) 2025 06/04/2021, 08/16/2020, 07/26/2020 Social Influencers of Health Screening 03/27/2025 03/27/2024 Hypertension/CHF/CAD Annual BMP Blood Test 12/27/2025 12/27/2024, 11/26/2024, 04/03/2024, Additional history exists Falls Risk Assessment 02/27/2026 02/27/2025 Cholesterol Screening (Lipid Panel) 07/18/2028 07/19/2023 Osteoporosis Screening (Bone Density Screening) 11/30/2032 11/30/2022 Pneumococcal Vaccine: 50+ Years Completed 08/07/2018, 06/05/2018 Lung Cancer Screening (Low Dose CT) Discontinued 10/27/2021, 10/21/2020 RSV Immunization Patients Under 20 months Aged Out 08/15/2023 No longer eligible based on patient's age to complete this topic Depression Screening Completed 02/20/2025 Influenza Vaccine Completed 02/27/2025, , 02/14/2023, Additional history exists HIB Vaccines Aged Out No longer eligi [...] Procedure Name Priority Date/Time Associated Diagnosis Comments CT CHEST WO CONTRAST Routine 02/25/2025 8:08 AM EDT History of lung cancer VAS US DUPLEX LOWER EXT ARTERIES BILAT WITH ZAINAB Routine 01/22/2025 9:12 AM EDT Bilateral lower extremity pain Other specified symptoms and signs involving the circulatory and respiratory systems MICROALBUMIN CREATININE URINE RATIO Routine 12/27/2024 10:00 AM EDT Elevated serum creatinine BASIC METABOLIC PANEL Routine 12/27/2024 9:51 AM EDT Elevated serum creatinine LIPID PANEL Routine 07/19/2023 FRANK DEXA AXIAL SKELETON Routine 11/30/2022 10:50 AM EDT Encounter for screening for osteoporosis CT LUNG SCREENING LOW DOSE Routine 10/27/2021 12:39 PM EDT Personal history of nicotine dependence from Last 3 Months or Most Recently Relevant to Health Maintenance Results * CT Chest wo Contrast (02/25/2025 8:08 AM EDT) Anatomical Region Laterality Modality Body Computed Tomogra phy 02/27/2025 4:09 PM EDT Impressions 02/27/2025 4:21 PM EDT No evidence of residual recurrent disease at the right middle lobe. Underlying emphysema. No new suspicious mass or nodule -------- FINAL REPORT -------- Dictated By: Tristin Boston Dictated Date: 02/27/2025 16:09 ET Assigned Physician: Tristin Boston Reviewed and Electronically Signed By: Tristin Boston Signed Date: 02/27/2025 16:21 ET Workstation ID: [id number] Transcribed By: Self Edit Transcribed Date: 02/27/2025 16:09 ET Narrative 02/27/2025 4:21 PM EDT EXAMINATION: CT CHEST WITHOUT CONTRAST CLINICAL INFORMATION: [...] of contrast discarded: 0 mL FINDINGS: Digital lime boiler demonstrates absence or asymmetric breast shadows. Motion [...] breast related to vacuum phenomena at L1/L2. Procedure Note Tristin Boston MD - 02/27/2025 EXAMINATION: CT CHEST WITHOUT CONTRAST CLINICAL INFORMATION: Right middle lobectomy. Evaluate for interval changes COMPARISON: Portions of previous 08/13/24 TECHNIQUE: Multidetector CT. Examination of the chest. Examination of the chest without IV contrast. Reformatting in the coronal and sagittal planes. DLP: 305 mGy-cm Dose optimization was performed including the use of low-dose iterativereconstruction technique with automatic exposure control based on patientsize. Type of contrast: None Volume of IV contrast: None Volume of contrast discarded: 0 mL FINDINGS: Digital lime boiler demonstrates absence or asymmetric breast shadows. Motion limits detail at the lung bases. LUNG: No suspicious abnormality of the trachea or mainstem bronchi. Noabnormality at the right middle lobectomy stump. Unchanged pleural associated density abutting the pleural reflectionanterior right upper lobe (4/55). Unchanged 0.4 cm solid nodule posterior aspect superior segment rightlower lobe (4/102) There is severe underlying emphysema. There are coarse reticular opacitiesgreater on the left. No honeycomb formation. There are a few typicallybenign pleural associated nodules and some probable scatteredgranulomata. No new suspicious mass or nodule. MEDIASTINUM: There are no enlarged mediastinal or hilar lymph nodes. Nosuspicious abnormality of the esophagus CARDIAC: The heart is not enlarged. No pericardial fluid or thickening CORONARY CALCIFICATION: There are marked coronary calcifications. VASCULAR: There is no thoracic aortic aneurysm. The central pulmonaryarteries are prominent. PLEURA: There is no pleural fluid or pneumothorax AXILLA/CHEST WALL: There are no enlarged axillary lymph nodes. No chestwall mass demonstrated VISUALIZED UPPER ABDOMEN: No suspicious abnormality on limited assessmentof the visualized upper abdomen MUSCULOSKELETAL: No suspicious focal bony lesion. Gas in the spinal canalbreast related to vacuum phenomena at L1/L2. IMPRESSION: No evidence of residual recurrent disease at the right middle lobe. Underlying emphysema. No new suspicious mass or nodule -------- FINAL REPORT -------- Dictated By: Tristin Boston Dictated Date: 02/27/2025 16:09 ET Assigned Physician: Tristin Boston Reviewed and Electronically Signed By: Tristin Boston Signed Date: 02/27/2025 16:21 ET Workstation ID: [id number] Transcribed By: Self Edit Transcribed Date: 02/27/2025 16:09 ET us Jojo Cortez NP IMG CT PROCEDURES Final Res ult * Vascular US duplex lower extremity arteries [...] Signed Date: 01/30/2025 15:12 ET Workstation ID: [id number] Transcribed By: Self Edit Transcribed Date: 01/30/2025 [...] Signed Date: 01/30/2025 15:12 ET Workstation ID: [id number] Transcribed By: Self Edit Transcribed Date: 01/30/2025 15:05 ET us Prachi Rudd MD CV VASCULAR PROCEDURES Fi nal Result * Microalbumin creatinine urine ratio (12/27/2024 10:00 AM EDT) Creatinine, Urine 70.0 mg/dL LAB CHEMISTRY METHOD 12/27/2024 2:20 PM EDT [facility] Microalb, Ur 14.0 0.0 - 29.0 mg/L LAB CHEMISTRY METHOD 12/27/2024 2:20 PM EDT [facility] Microalb/Creat Ratio 20 <30 mg/g creat LAB CHEMISTRY METHOD 12/27/2024 2:20 PM EDT [facility] Urine Urine specimen obtained by clean catch procedure / Unknown Non-blood Collection / Unknown 12/27/2024 10:00 AM EDT 12/27/2024 10:00 AM EDT us Constanza WALKER LAB URINE ORDERABLES Fin al Result [facility] [address] [place] [address], * (ABNORMAL) Basic metabolic panel (12/27/2024 9:51 AM EDT) Sodium 139 133 - 145 mmol/L LAB CHEMISTRY METHOD 12/27/2024 1:48 PM EDT [facility] Potassium 4.1 3.5 - 5.5 mmol/L LAB CHEMISTRY METHOD 12/27/2024 1:48 PM EDT [facility] Chloride 104 96 - 110 mmol/L LAB CHEMISTRY METHOD 12/27/2024 1:48 PM EDT [facility] CO2 28 21 - 32 mmol/L LAB CHEMISTRY METHOD 12/27/2024 1:48 PM EDT [facility] Anion Gap 7 3 - 11 LAB CHEMISTRY METHOD 12/27/2024 1:48 PM EDT [facility] Glucose 124(H) 70 - 100 mg/dL LAB CHEMISTRY METHOD 12/27/2024 1:48 PM EDT [facility] BUN 17 5 - 25 mg/dL LAB CHEMISTRY METHOD 12/27/2024 1:48 PM EDT [facility] Creatinine 1.12(H) 0.50 - 1.10 mg/dL LAB CHEMISTRY METHOD 12/27/2024 1:48 PM EDT [facility] eGFR 51(L) >=60 mL/min/1. 73m2 LAB CHEMISTRY METHOD 12/27/2024 1:48 PM EDT [facility] Comment:Calculation based on the Chronic Kidney Disease Epidemiology Collaboration (CKD-EPI) equation refit without adjustment for race. BUN/Creatinine Ratio 15.2 LAB CHEMISTRY METHOD 12/27/2024 1:48 PM EDT [facility] Calcium 9.1 8.5 - 10.5 mg/dL LAB CHEMISTRY METHOD 12/27/2024 1:48 PM EDT [facility] Blood Venous blood specimen / Unknown Venipuncture / Unknown 12/27/2024 9:51 AM EDT 12/27/2024 9:51 AM EDT us Constanza WALKER LAB BLOOD ORDERABLES Fin al Result [facility] [address] [place] [address], * (ABNORMAL) Lipid panel (07/19/2023) LDL/HDL Ratio 3 0 - 4 Triglycerides 115 0 - 150 mg/dL Cholesterol 201(A) 0 - 200 mg/dL HDL 67 >=40 mg/dL LDL Cholesterol 111(A) 0 - 100 mg/dL Blood Venous blood specimen / Unknown us Historical Provider LAB BLOOD ORDERABLES Vanesa ortiz Result * [facility] DEXA AXIAL SKELETON (11/30/2022 10:50 AM EDT) Anatomical Region Laterality Modality Mammography 11/30/2022 10:0 7 AM EDT Narrative 11/30/2022 10:50 AM EDT [facility] Diagnostic Imaging Department [address] [place], [place] [id number] Patient: JONH MACEDO /Age/Sex: 1950 - 72 - F Unit#: [id number] Location/Status: [facility] CLI [facility]em[facility] Ordering Physician: CONSTANZA STRINGER PA-C [facility] Dexa Axial Skeleton - 11/30/22 - [...] probability of hip fracture of 2.8%. Code 02430 Dictating Physician: JORJE PANIAGUA MD Electronically Signed by: JORJE PANIAGUA MD Dic Date/Time: 11/30/22 105 Sign date/Time: 11/30/221049 Procedure Note Jorje Paniagua MD - 06/20/2023 [facility] Diagnostic Imaging Department [address] [place] [address] Patient: JONH MACEDO /Age/Sex: 1950 - 72 - F Unit#: [id number] [facility] Ordering Physician: CONSTANZA STRINGER PA-C [facility] [...] density of the femurs bilaterally is 0.936 gm/we7cndmt is 93% of that of young normals [...] probability of hip fracture of 2.8%. Code 25790 Dictating Physician: JORJE PANIAGUA MD Electronically Signed by: JORJE PANIAGUA MD Dic Date/Time: 11/30/22 1050 Sign date/Time: 11/30/22 105 Constanza WALKER IMMynor BI PROCEDURES Final Result * CT LUNG SCREENING LOW DOSE (10/27/2021 12:39 PM EDT) Anatomical Region Laterality Modality Computed Tomogra phy 10/27/2021 10:1 3 AM EDT Narrative 10/27/2021 12:39 PM EDT [facility] Diagnostic Imaging Department [address] [place] [address] Patient: JONH MACEDO D.O.B./Age/Sex: 1950 - 71 - F Unit#: [id number] Location/Status: [facility]/REG CLI Mnemonic/Ordering Site: [facility] Ordering Physician: DENIA HANDY MD CT Lung Screening Low Dose - 10/27/21 - 1020 HISTORY: Former smoker, 45 pack year total. COMMENTS: Noncontrast Chest CT examination includes axial imaging from the lung apices through the hemidiaphragms supplemented with coronal and sagittal reformatted images utilizing low-dose screening technique ([employer], 92.68 DLP (mGy-cm), CT utilizing dose reduction technique with automated exposure control based on patient size or use of iterative reconstruction technique). Direct comparison to low-dose screening Chest CT examinations: 5437-5495 Cardiac size within normal limits. Coronary artery [...] screening CT analysis; similar when compared to 9045-3849. New left lower lobe endobronchial nodule when compared to 2020 favored to represent mucoid plug formation, follow-up recommended. Please see the above report for further details. [id number] [facility]ad Lung RADS: Category 3 Dictating Physician: TONY RIOS DO Electronically Signed by: TONY RIOS DO Dic Date/Time: 10/27/21 1218 Sign date/Time: 10/27/21 1239 Procedure Note Tony Rios, - 05/04/2022 [facility] Diagnostic Imaging Department [address] [place] [id number] Patient: JONH MACEDO /Age/Sex: 1950 - 71 - F Unit#: [id number] [facility] CLI Mnemonic/Ordering Site: [facility] Ordering Physician: DENIA HANDY MD CT Lung [...] comparison to low-dose screening Chest CT examinations: 6065-3695 Cardiac size within normal limits. Coronary artery [...] left lower lobe endobronchial nodule (series 3 [id number]) favored to represent mucoid plug formation; follow-up recommended toensure resolution. No interval developing focal suspicious osseous abnormality by CTanalysis. Cholecystectomy. IMPRESSION: Emphysematous disease and nonspecific subcentimeter pulmonary nodules bylow- dose screening CT analysis; similar when compared to 5166-0712. New left lower lobe endobronchial nodule when [...] Maintenance Insurance [employer] Care Teams Mower Sharpener Relationship Specialty Start Date End Date Constanza Stringer PA [address] [facility] [address] [place] [address] PCP - General Internal Medicine 11/27/20
--- OUTSIDE RECORDS SUMMARY | 2025-03-06 16:05 | XMS_ITS | Clinical Summary ---
Author Organization [facility] Address [address] [place] [address] Care Team Providers Care Taxation Inspector Name Role Phone Jojo August Primary Care [...] age to complete this topic Care Teams Taxation Inspector Relationship Specialty Start Date End Date Jojo August PA PCP - General Physician Human Geography Instructor 05/07/18
== END 2025-03-06 12:55 | disposition home or self-care (01) ==
LOC: HO.MRI 12:54
PROVIDERS: PCP Internal Medicine; Visit Provider Nurse Practitioner
DX: R42 Dizziness and giddiness (principal)
CPT/HCPCS: 70544; 70549; A9585

== ENCOUNTER 2025-03-14 12:45 | Outpatient (RCR) | payer MEDICARE, SELFPAY ==
[2025-03-14 13:09] VITALS: BP 166/72; PULSE 81
--- NOTE | 2025-03-14 14:01 | MHC.PT.EP ---
[facility] [place] Office [place] Office [place] Office [address] [phone] F: [phone] F: [phone] F: [phone] F: [phone] Physical Therapy Plan of Care Date of Evaluation: 03/14/25 Date of Surgery: NA Diagnosis: Dizziness and giddiness Assessment: Justine is a 74 year old female who is referred to PT for dizziness and giddiness . She reports of having sudden onset of room spinning dizziness which would come in spontaneously with sitting, standing, walking, reading. It lasts for 2-4 minutes. Denies any nausea or vomiting. On PT examination she presented with intact saccades, intact smooth pursuit, intact visual tracking, negative VBI, negative head thrust, 0 lines for DVA and negative for BPPV in B rob pikes and B roll test. She presented with good static and dynamic balance. She lives alone and is independent with all ADLS. She does not have any symptoms suggestive for vestibular dysfunction. No PT indicated at this time. Frequency and Duration: The patient will be seen Short Term Goals: Oyster Farmer Goals: Treatment Plan: Modalities to reduce pain, spasms and effusion. Manual therapy to restore motion and function. Therapeutic exercise to improve strength and flexibility. Neuromuscular re-education for posture and balance. Therapeutic activities to return to functional activities of daily living. Electronically signed by: Dorothy Munson, PT DPT Please sign and return to therapist. Thank you for your referral.
--- NOTE | 2025-04-15 11:20 | MHC.PT.DC ---
[facility] [place] [facility] [place] [facility] [place] [facility] [address] Oliver Moore [address] [phone] F: [phone] F: [phone] F: [phone] F: [phone] Physical Therapy Discharge Report Diagnosis: Dizziness and giddiness Date of Surgery: NA Date of Evaluation: 03/14/25 Date of Discharge: 04/15/25 Treatments to Date: 1 Cancellations to Date: 0 No Shows to Date: 0 Discharge Status: Discharge Summary: Justine has had no symptoms of vestibular dysfunction in over a month. She is therefore being d/c from PT. Electronically signed by: Droothy Munson PT DPT Please sign and return to therapist. Thank you for your referral.
== END 2025-04-15 11:20 | disposition home or self-care (01) ==
LOC: HO.PT 12:45
PROVIDERS: PCP Internal Medicine; Visit Provider Nurse Practitioner
DX: R42 Dizziness and giddiness (principal)
CPT/HCPCS: 97112; 97161

== ENCOUNTER 2025-03-20 09:24 | Outpatient (AMB) | payer MEDICARE, SELFPAY ==
--- NOTE | 2025-03-20 09:26 | A.OFFVIS_ITS ---
Vital Signs 03/20/25 09:45 Height 5 ft 1 in Weight 125 lb BMI 23.6 BP 126/66 Blood Pressure Location Rt brachial Position Sitting Respiration 16 Pulse 97 Pulse Source Pulse Oximeter Pulse Oximetry (%) 98 Oxygen Delivery Method Room Air Intake Visit Reasons: 6 weeks results Pneumatic Drum Sander Required: No Allergies No Known Allergies Allergy (Verified 03/20/25 09:47) HPI Comments Details: Justine is a 74-year-old female patient with a past medical history of hypertension and hypothyroid who is following up today for reports of dizziness. According to referral notes from primary care, initially her dizziness was presumed to be related to her amlodipine however after vacationing from the amlodipine she did still have some lightheadedness. She had been referred to vestibular rehab and Neurology though there was mentioned that she never went to Neurology because CT of the head was nonacute. She is no longer feeling ?spinning sensations? but does have lightheadedness which is relatively constant. She does have a family history notable for Parkinson's disease and ?cardiac problems?. At our initial visit Justine shared with me that in July of 2024 she began having some dizzy spells. They stopped for about 3 months and returned in November. Dizzy spells can occur days in a row and then may occcur once per week or even less. The episodes do no occur more than once per day and her dizziness lasts less than one minute in total. The last time this occurred was 02/02/2025. Between these episodes she feels slightly light headed but this is mild and not impacting her balance. She is not able to determine a trigger for these episodes and can occur sitting or standing or even laying. She has not noticed a correlation with alexander head movements. There are no other symptoms that come along with these episodes. Has a time of her last visit, I ordered an MRA head and neck as well as an EEG all of which were normal. I also ordered a trial of vestibular physical therapy. She tells me today, she did attend vestibular physical therapy however upon their initial evaluation, they could not elicit any symptoms and therefore they did not proceed with continued therapy. She was however recommended to increase her hydration as historically she has not hydrated well. She was recommended electrolyte powder with flavor in efforts to incentivize drinking. She also notes that her episodes has been decreasing significantly and she had a n event approximately 1 week ago however it was very quick and not strong. Overall, she feels that she has been improving somewhat. Prior workup: CT brain: Non-acute (performed about 1 year ago at [facility]) EEG routine 02/17/2025: Unremarkable MRA head and neck 03/06/2025: normal [facility] Medical History (Updated 02/05/25 @ 09:35 by Shira Cao CNP) Vitamin D deficiency COPD (chronic obstructive pulmonary disease) Hypertension History of lung cancer Surgical History (Updated 02/03/25 @ 08:49 by Jael Abarms CMA) Hx of tonsillectomy History of cholecystectomy History of ankle surgery Family History (Updated 02/03/25 @ 09:01 by Jael Abrams CMA) Mother Parkinson disease Father Cataracts, bilateral Hypotension Review of Systems Const All systems reviewed & are unremarkable except as noted in HPI and below Physical Exam Exam Exam: Negative Lakemore-Hallpike maneuver Const General: cooperative, healthy appearing, comfortable and no acute distress Nutritional Appearance: well nourished Orientation/consciousness: patient oriented x3 Limitations: no limitations HEENT Head: Yes normal to inspection and Yes normocephalic Eyes General: appearance normal, both eyes and all related structures Visual Schwartz: normal visual schwartz by confrontation Alignment and Position: alignment normal Periorbital: periorbital findings normal Eyelids: Yes eyelids normal Conjunctivae: conjunctivae normal Sclerae: sclerae normal Neck Neck: Yes normal visual inspection and Yes full ROM General: Yes no CVA tenderness Back/Spine/Pelvis Back: no CVA tenderness Cervical Spine: normal cervical lordosis Thoracic/Lumbar Spine: thoracic and lumbar spine normal to inspection Neuro General: patient oriented x3 Cranial nerves: Yes CN's II-XII intact bilaterally Cognition (Neuro): normal cognition Gait exam (Neuro): Normal gait present Motor exam (neuro): no tremor noted Romberg Test: Negative Pupils: Normal pupillary reactivity/response: bilateral Psych Appearance: grossly normal Mental Status: mental status grossly normal Speech and movement: Normal speech and movement present and Clear speech present Affect: normal affect Attitude: cooperative Thought process: Normal thought process present Thought content: Normal thought content present Insight: Good insight present (Psych) Judgement: Good judgement present (Psych) Assessment & Plan Assessment & Plan (1) Vertigo: Code(s): R42 - Dizziness and giddiness Category: Medical (2) Dizziness: Code(s): R42 - Dizziness and giddiness Category: Medical Plan Justine is a 74-year-old female patient with a past medical history of hypertension and hypothyroid who is following up today for reports of dizziness. Overall, her symptoms has been improving and has been more mild. She does admit to poor hydration and has plans to incentivize her hydration with electrolyte powder with flavoring. Physical therapy was not able to elicit her symptoms and therefore she did not continue with exercises. Her workup has also been reassuring in that her CT of the brain, vascular imaging, and EEG were nondiagnostic. For now, I will have her return on an as-needed basis if her symptoms do not continue to improve or if her symptoms become worse. If she does return with worsening symptoms, could consider an ambulatory EEG. Coding Level of Care Code Est Pt Level 3 (95931) Diagnoses Vertigo R42 Dizziness R42
[2025-03-20 09:45] VITALS: BP 126/66; PULSE 97; RESP 16; O2SAT 98; BMI 23.6
--- OUTSIDE RECORDS SUMMARY | 2025-03-20 10:28 | XMS_ITS | Clinical Summary ---
Author Organization [facility] Address [address] [place] [address] Care Team Providers Care Property Underwriter Name Role Phone Jojo August Primary Care [...] age to complete this topic Care Teams Property Underwriter Relationship Specialty Start Date End Date Jojo August PA PCP - General Physician Book Shelver 05/07/18
--- OUTSIDE RECORDS SUMMARY | 2025-03-20 10:28 | XMS_ITS | Continuity of Care Document ---
Author Organization [facility] Address [address] [place] [address] Phone [phone] Care Team Providers Care Toy Parts Former Supervisor Name Role Phone Bob Ledbetter M.D. Care Team Information Receive r [phone] Problems Active Problems Provider Date Geeta thyroiditis [...] SIG Qnty Indications Ordering Provider Date Amitriptyline QSD40yr Tablets take 1 or 2 tabs at hs 60tabs Vinny Meadows M.D. 09/21/2022 Levothyroxine Dxbezt08hub Tablets Take 1 Tablet By Mouth Daily 90tabs Vinny Meadows M.D. 09/19/2022 Ptjhfyucvk4rs Tablets 1 by mouth every day 90tabs Rachel Stringer PA-C [id number] Capsules Take 1 Capsule By Mouth Twice Daily Unknown Cetirizine OJM13tg Tablets Take 1 Tablet By Mouth Every Day Bob Ledbteter M.D. Vital Signs Date Vital Result Comment 09/21/2022 10:09am Height 61 inches 5'1 Weight 122.00 lb BMI (Body Mass Index) 23.0 kg/m2 Results Test Acquired Date Facility Test Result H/L Range N ote TSH With Reflex To FT4 09/21/2022 [facility] TSH With Reflex To FT4 [...] Appt Shashank e Vinny Meadows M.D. Created [address] [place] [address] Drive [address] [place] [address] [phone] Vinny Meadows M.D. Created [address] [place] [address] Drive [address] [place] [address] [phone] Vinny Meadows M.D. Created [address] [place] [address] Drive [address] [place] [address] [phone]
--- OUTSIDE RECORDS SUMMARY | 2025-03-20 10:28 | XMS_ITS | Clinical Summary ---
Author Organization [facility] Address [address] [place] [address] Phone Care Team Providers Care Pants Closer Name Role Phone Constanza Stringer Primary Care [...] how their size, shape, and policy change clerk time affect are level of suspicion for [...] early February when she comes back from [place]. She is going to [place] from January 29 until February 12. Prior [...] AM EDT Office Visit Thoracic Surgery - [place] [address] [facility] [address] [place] [phone] Jojo Cortez NP History of lung cancer 02/27/2025 9:45 AM EDT Office Visit Internal Medicine [facility] [address] [facility] [address] [place] [phone] Constanza Stringer PA Primary hypertension (Primary Dx); Hypothyroidism, unspecified type; Chronic obstructive pulmonary disease, unspecified COPD type ([facility] V24, [facility] V28); Malignant neoplasm of unspecified part of unspecified bronchus or lung ([facility] V24, [facility] V28) 02/26/2025 1:30 PM EDT Office Visit Vascular Surgery [facility] [address] [facility] [address] [place] [phone] Prachi Rudd MD PAD (peripheral artery disease) ([facility] V24) (Primary Dx) 02/25/2025 7:55 AM EDT - 02/25/2025 11:59 PM EDT Hospital Encounter [facility] CT Scan [address] [place] [phone] History of lung cancer Discharge Disposition: Home or Self Care 01/22/2025 8:14 AM EDT - 01/22/2025 11:59 PM EDT Hospital Encounter [facility] Ultrasound [address] [place] [phone] Bilateral lower extremity pain; Other specified symptoms [...] SURGERY OTHER SURGICAL HISTORY 02/14/2023 Right PROCEDURE: [place] THORACOSCOPY W/LOBECTOMY SINGLE LOBE; COMMENT: RML Lobectomy Medical History Medical History Date Comments Hypothyroidism 01/08/2018 DX:Hypothyroidis m; COMMENT: Comments: Endo Dr. Meadows Vitamin D deficiency DX:Vitamin D deficiency COPD (chronic obstructive pu lmonary disease) ([facility] V24, [facility] V28) DX:COPD (chronic o bstructive pulmonary disease) ([facility]) Pulmonary nodules DX:Pulmonary n odules; COMMENT: [...] care for your loved ones. For example, early childhood education specialist or elderly care for an older adult? [...] AM EST Office Visit Internal Medicine - [place] [address] [facility] [address] [place] [address] Constanza Stringer, PA [address] [place] [address] Health Maintenance Due Date Last Done Comments DTaP,Tdap,and Td Vaccines (1 - Tdap) 1967 Zoster Vaccines (1 of 2) 1998 Hepatitis C Screening 04/23/2022 Medicare Annual Wellness Visit 04/23/2022 RSV Immunization Adult Patients (1 - 1-dose 75+ series) 2023 08/15/2023 COVID-19 Vaccine ( - season) 2025 06/04/2021, 08/16/2020, 07/26/2020 Social Influencers [...] Procedure Name Priority Date/Time Associated Diagnosis Comments EXTERNAL MRI REPORT 03/06/2025 EXTERNAL MRI REPORT 03/06/2025 EXTERNAL MRI REPORT 03/06/2025 EXTERNAL MRI REPORT 03/06/2025 CT CHEST WO CONTRAST Routine 02/25/2025 8:08 [...] Recently Relevant to Health Maintenance Results * External MRI Report (03/06/2025) Only the most recent of4 resultswithin the time period is included. Anatomical Region Laterality Modality Magnetic Resonan ce Provider [place] [facility] IM MRI PROCEDURES Final Result * CT Chest wo Contrast (02/25/2025 8:08 [...] Signed Date: 02/27/2025 16:21 ET Workstation ID: [id number] Transcribed By: Self Edit Transcribed Date: 02/27/2025 [...] of contrast discarded: 0 mL FINDINGS: Digital tobacco buyer demonstrates absence or asymmetric breast shadows. Motion [...] of contrast discarded: 0 mL FINDINGS: Digital tobacco buyer demonstrates absence or asymmetric breast shadows. Motion [...] Signed Date: 02/27/2025 16:21 ET Workstation ID: [id number] Transcribed By: Self Edit Transcribed Date: 02/27/2025 16:09 ET us Jojo Cortez RADON INSPECTOR IMG CT PROCEDURES Final Res ult * [...] Signed Date: 01/30/2025 15:12 ET Workstation ID: [id number] Transcribed By: Self Edit Transcribed Date: 01/30/2025 [...] Signed Date: 01/30/2025 15:12 ET Workstation ID: [id number] Transcribed By: Self Edit Transcribed Date: 01/30/2025 15:05 ET Prachi Rudd MD CV VASCULAR PROCEDURES Fi nal Result * Microalbumin creatinine urine ratio (12/27/2024 10:00 AM EDT) Creatinine, Urine 70.0 mg/dL LAB CHEMISTRY METHOD 12/27/2024 2:20 PM EDT [facility] Microalb, Ur 14.0 0.0 - 29.0 mg/L LAB CHEMISTRY METHOD 12/27/2024 2:20 PM EDT [facility] Microalb/Creat Ratio 20 <30 mg/g creat LAB CHEMISTRY METHOD 12/27/2024 2:20 PM EDT [facility] Urine Urine specimen obtained by clean catch procedure / Unknown Non-blood Collection / Unknown 12/27/2024 10:00 AM EDT 12/27/2024 10:00 AM EDT Constanza WALKER LAB URINE ORDERABLES Fin al Result [facility] [address] [place] [address], [place] [phone] * (ABNORMAL) Basic metabolic panel (12/27/2024 9:51 AM EDT) Sodium 139 133 - 145 mmol/L LAB CHEMISTRY METHOD 12/27/2024 1:48 PM EDT [facility] Potassium 4.1 3.5 - 5.5 mmol/L LAB CHEMISTRY METHOD 12/27/2024 1:48 PM T [facility] Chloride 104 96 - 110 mmol/L LAB CHEMISTRY METHOD 12/27/2024 1:[address] [facility] CO2 28 21 - 32 mmol/L LAB CHEMISTRY METHOD 12/27/2024 1:[address] [facility] Anion Gap 7 3 - 11 LAB CHEMISTRY METHOD 12/27/2024 1:48 PM T [facility] Glucose 124(H) 70 - 100 mg/dL LAB CHEMISTRY METHOD 12/27/2024 1:[address] [facility] BUN 17 5 - 25 mg/dL LAB CHEMISTRY METHOD 12/27/2024 1:[address] [facility] Creatinine 1.12(H) 0.50 - 1.10 mg/dL LAB CHEMISTRY METHOD 12/27/2024 1:[address] [facility] eGFR 51(L) >=60 mL/min/1. 73m2 LAB CHEMISTRY METHOD 12/27/2024 1:[address] [facility] Comment:Calculation based on the Chronic Kidney Disease Epidemiology Collaboration (CKD-EPI) equation refit without adjustment for race. BUN/Creatinine Ratio 15.2 LAB CHEMISTRY METHOD 12/27/2024 1:[address] [facility] Calcium 9.1 8.5 - 10.5 mg/dL LAB CHEMISTRY METHOD 12/27/2024 1:48 PM T [facility] Blood Venous blood specimen / Unknown Venipuncture / Unknown 12/27/2024 9:51 AM EDT 12/27/2024 9:51 AM EDT us Constanza WALKER LAB BLOOD ORDERABLES Fin al Result [facility] [address] [place] [address], * (ABNORMAL) Lipid panel (07/19/2023) LDL/HDL Ratio 3 0 - 4 Triglycerides 115 0 - 150 mg/dL Cholesterol 201(A) 0 - 200 mg/dL HDL 67 >=40 mg/dL LDL Cholesterol 111(A) 0 - 100 mg/dL Blood Venous blood specimen / Unknown Historical Provider LAB BLOOD ORDERABLES Vanesa l Result * [facility] DEXA AXIAL SKELETON (11/30/2022 10:50 AM EDT) Anatomical Region Laterality Modality Mammography 11/30/2022 10:0 7 AM EDT Narrative 11/30/2022 10:50 AM EDT [facility] Diagnostic Imaging Department [address] [place] [address] Patient: JONH MACEDO /Age/Sex: 1950 - 72 - F Unit#: [id number] [facility] Ordering Physician: CONSTANZA STRINGER PA-C [facility] Dexa Axial Skeleton - 11/30/22 - [...] probability of hip fracture of 2.8%. Code 87512 Dictating Physician: JORJE PANIAGUA MD Electronically Signed by: JORJE PANIAGUA MD Dic Date/Time: 11/30/22 1050 Sign date/Time: 11/30/22 105 Procedure Note Jorje Paniagua MD - 06/20/2023 [facility] Diagnostic Imaging Department [address] [place], [place] [id number] Patient: JONH MACEDO /Age/Sex: 1950 - 72 - F Unit#: [id number] Location/Status: [facility]/REG I Mnemonic/Ordering Site: [facility] Ordering Physician: CONSTANZA STRINGER PA-C [facility] Dexa [...] density of the femurs bilaterally is 0.936 gm/qa4rzbaz is 93% of that of young normals [...] probability of hip fracture of 2.8%. Code 80251 Dictating Physician: JORJE PANIAGUA MD Electronically Signed by: JORJE PANIAGUA MD Dic Date/Time: 11/30/22 1050 Sign date/Time: 11/30/22 105 Constanza WALKER IMMynor BI PROCEDURES Final Result * CT LUNG SCREENING LOW DOSE (10/27/2021 12:39 PM EDT) Anatomical Region Laterality Modality Computed Tomogra phy 10/27/2021 10:1 3 AM EDT Narrative 10/27/2021 12:39 PM EDT [facility] Diagnostic Imaging Department [address] [place] [address] Patient: JONH MACEDO /Age/Sex: 1950 - 71 - F Unit#: [id number] Location/Status: [facility]/REG CLI Mnemonic/Ordering Site: [facility] Ordering Physician: DENIA HANDY MD CT Lung Screening Low Dose - 10/27/21 - 1020 HISTORY: Former smoker, 45 pack year total. COMMENTS: Noncontrast Chest CT examination includes axial imaging from the lung apices through the hemidiaphragms supplemented with coronal and sagittal reformatted images utilizing low-dose screening technique ([employer], 92.68 DLP (mGy-cm), CT utilizing dose reduction technique with automated exposure control based on patient size or use of iterative reconstruction technique). Direct comparison to low-dose screening Chest CT examinations: 4666-8220 Cardiac size within normal limits. Coronary artery [...] screening CT analysis; similar when compared to 3630-8047. New left lower lobe endobronchial nodule when compared to 2020 favored to represent mucoid plug formation, follow-up recommended. Please see the above report for further details. [id number] [facility] Lung RADS: Category 3 Dictating Physician: TONY RIOS DO Electronically Signed by: TONY RIOS DO Dic Date/Time: 10/27/21 1218 Sign date/Time: 10/27/21 1239 Procedure Note Tony Rios, - 05/04/2022 [facility] Diagnostic Imaging Department [address] [place] [address] Patient: JONH MACEDO /Age/Sex: 1950 - 71 - F Unit#: [id number] Location/Status: [facility]/REG CLI Mnemonic/Ordering Site: [facility] Ordering Physician: DENIA HANDY MD CT Lung [...] comparison to low-dose screening Chest CT examinations: 3763-0816 Cardiac size within normal limits. Coronary artery [...] left lower lobe endobronchial nodule (series 3 ) favored to represent mucoid plug formation; follow-up recommended toensure resolution. No interval developing focal suspicious osseous abnormality by CTanalysis. Cholecystectomy. IMPRESSION: Emphysematous disease and nonspecific subcentimeter pulmonary nodules bylow- dose screening CT analysis; similar when compared to 4218-2228. New left lower lobe endobronchial nodule when compared to 2020 favoredto represent mucoid plug formation, follow-up recommended. Please see the above report for further details. G029[address] [facility] Lung RADS: Category 3 Dictating Physician: TONY RIOS DO Electronically Signed by: TONY RIOS DO Dic Date/Time: 10/27/21 1218 Sign date/Time: 10/27/21 1239 Denia Handy MD IM CT PROCEDURES Final Result from Last 3 Months or Most Recently Relevant to Health Maintenance Insurance [employer] Care Teams Pants Closer Relationship Specialty Start Date End Date Constanza Stringer PA [address] [place] [id number] PCP - General Internal Medicine 11/27/20
== END 2025-03-20 10:01 | disposition home or self-care (01) ==
LOC: HO.HSM 09:24
PROVIDERS: PCP Physician Assistant; Visit Provider Nurse Practitioner
DX: R42 Dizziness and giddiness (principal)
CPT/HCPCS: 99213

== ENCOUNTER → 2025-03-20 09:24 | Outpatient (BNVA) | payer MEDICARE, SELFPAY | PROVIDERS: PCP Physician Assistant; Visit Provider Nurse Practitioner | DX: R42 Dizziness and giddiness (principal) | CPT/HCPCS: 99212 ==